=== PATIENT | female | born 1940 | race Caucasian/White ===

== ENCOUNTER → 2016-12-03 | Outpatient (CLI) | payer OTHER, BC ==
[~2016-12-03] MED LIST: DRGTP12 TOP; FSMD/70 PO; LEVO100T PO; LEVO88TA PO; LORA-741 PO; OXYC-57 PO; PRAV20TA PO
--- NOTE | 2016-12-03 12:30 | DIAGNOSTIC IMAGING REPORT ---
PET/CT CLINICAL HISTORY: Pulmonary nodule. COMPARISON STUDY: Chest CT dated 11/25/2016. TECHNIQUE: One hour following the IV administration of 13.9 mCi of F-18 FDG, PET/CT examination was performed from the orbital meatal line through the bony pelvis. Noncontrast CT is performed for the purposes of anatomic correlation and attenuation correction. Note that this does not reflect a diagnostic CT examination. Images were reviewed on a separate [employer] independent workstation. Fused images were obtained. Standard uptake values reported are maximum values within the region of interest expressed in gm/mL. FINDINGS: PET FINDINGS: Head and neck: There is expected physiologic activity within the visualized brain parenchyma at the skull base and the salivary glands. Thorax: Evaluation of the thorax demonstrates expected physiologic myocardial activity. There is a spiculated mass in the anterior left upper lobe seen on image #53. This measures 3.4 x 2.9 cm and is FDG avid with a maximum SUV of 10.8. No additional pulmonary lesion is seen. There are FDG avid mediastinal and left hilar lymph nodes. A subcarinal node on image #63 measures 1.6 x 1.1 cm and demonstrates a maximum SUV of 5.7. A left hilar node on image #61 measures 1.7 x 1.3 cm demonstrates a maximum SUV of 6.4. There are at least 2 additional FDG avid left hilar lymph nodes seen on images #58 and #67.No right hilar adenopathy is seen. Abdomen and pelvis: There is expected activity within the liver, spleen, kidneys, renal collecting system, and bladder. Low-level bowel activity is likely within physical limits. No FDG avid lesions are identified in the abdomen or pelvis. 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 A lytic lesion in the body of the sternum on image #76 measures 2.5 x 3.5 cm and demonstrates a maximum SUV of 8.2. A lesion in the left ilium on image #156 measures 1.6 cm and demonstrates a maximum SUV of 9.2. Additional lesions are seen within the body of L1 on image #107, the sacrum on image #157, and the right ischium on image #195. Unenhanced CT images: Partially imaged brain parenchyma the skull base is normal in appearance. Orbital contents are normal as visualized. Mucosal thickening is seen in the right maxillary antrum. The remaining visualized paranasal sinuses are clear. The mastoid air cells are well pneumatized. The salivary glands are normal in appearance. The thyroid gland is atrophic versus surgically absent. No cervical lymphadenopathy is seen. There is atherosclerotic calcification of the thoracic aorta which is normal in caliber. No airspace consolidation is seen typical for pneumonia. A trace right pleural effusion is identified. See above under PET findings for discussion of the left upper lobe pulmonary lesion. No axillary lymphadenopathy is seen. The heart is normal in size and there is trace pericardial effusion. There is a tiny hiatal hernia. There is evidence of hepatic steatosis. A 1.8 cm cyst is noted in the left hepatic lobe. The unenhanced spleen, adrenal glands, and kidneys are grossly unremarkable. The pancreas appears atrophic. Calcified gallstones are identified. The abdominal aorta is normal in caliber noting mild atherosclerotic calcification. There is no bowel obstruction. Moderate colonic fecal retention is observed. There is moderate colonic diverticulosis without CT evidence of acute diverticulitis. A normal appendix is identified. No intraperitoneal free air or abdominal ascites is seen. There is no abdominal, pelvic, or inguinal lymphadenopathy. The bladder, uterus, and adnexa are normal as visualized. The skeletal structures are osteopenic. Mild degenerative change is seen throughout the spine. IMPRESSION: 1. There is a 3.4 cm FDG avid spiculated mass in the left upper lobe. This should be considered lung cancer until otherwise. 2. FDG avid left hilar and mediastinal lymph nodes are consistent with kana disease. 3. There is evidence of osteolytic metastatic disease as above. 4. There is a trace right pleural effusion. 5. Cholelithiasis. 6. Moderate constipation. 7. There is moderate colonic diverticulosis without CT evidence of acute diverticulitis. 8. Additional findings as above. Electronically signed by: Karan Ring M.D. 12/03/2016 12:29 PM Dictated Date/Time: 12/03/2016 12:14 PM
== END | disposition home or self-care (01) ==
LOC: C.PET 08:23
PROVIDERS: ATTEND Physician Assistant
DX: R07.9 Chest pain, unspecified (principal); Z87.891 Personal history of nicotine dependence; R91.8 Other nonspecific abnormal finding of lung field; S31.001A Unspecified open wound of lower back and pelvis with penetration into retroperitoneum, initial encounter; R91.1 Solitary pulmonary nodule

== ENCOUNTER 2016-12-26 11:46 | Day surgery (SDC) | payer OTHER, BC ==
[2016-12-25 17:38] VITALS: BMI 27.0
[~2016-12-26] VITALS: Ht 160 cm; Wt 71.0 kg
[~2016-12-26 11:46] MED LIST changes: -FSMD/70 PO
[2016-12-26] MEDS ORDERED: POLY335019 PO (12:33)
[2016-12-26 12:34] VITALS: BP 136/57; PULSE 65; TEMP 37; O2SAT 97; Ht 160 cm; Wt 71.0 kg
[2016-12-26] MEDS ORDERED: NURSING VERBAL MED ORDER ONE (14:00)
[2016-12-26] MEDS ORDERED: LACTATED RINGER'S 1000ML 1,000 ML IV SCH (14:00)
--- NOTE | 2016-12-26 15:31 | Discharge Instructions ---
Discharge Instructions Date of Service Dec 26, 2016. Visit Reason for Visit: Lung Cancer With Mets Discharge Discharge Diagnosis / Problem: Lung Cancer With Mets Discharge Goals Goal(s): Learn about illness Activity Recommendations Activity Limitations: resume your previous activity (in 24 hours) Anesthesia . Post Anesthesia Instructions: If you have had General Anesthesia or IV Sedation: * Do not drive today. * Resume driving when surgeon permits. * Do not make important decisions or sign legal documents today. * Call surgeon for: 1. Temperature elevations greater than 101 degrees F. 2. Uncontrollable pain. 3. Excessive bleeding. 4. Persistent nausea and vomiting. 5. Medication intolerance (nausea, vomiting or rash). * For nausea and vomiting use only clear liquids such as: tea, soda, bouillon until nausea subsides, then gradually increase diet as tolerated. * If you have any concerns or questions, call your surgeon's office. If physician is unavailable and it is an emergency, call 911 or go to the nearest emergency room. . Instructions / Follow-Up Instructions / Follow-Up 1. Keep your scheduled appointment with Dr. Dash on January 05 @ 9:45. 2. you may remove dressing in 3 days and shower thereafter. No tub baths. Diet Recommendations Recommended Home Diet: resume previous diet Pending Studies Studies pending at discharge: no Medical Emergencies . Who to Call and When: Medical Emergencies: If at any time you feel your situation is an emergency, please call 911 immediately. . Non-Emergent Contact Non-Emergency issues call your: Surgeon Call Non-Emergent contact if: you have a fever, your pain is not controlled, wound has increased drainage . . "Provider Documentation" section prepared by Rob Carrion. .
[2016-12-26] MEDS ORDERED: TRAM-10 PO (16:21)
[2016-12-26] MEDS ORDERED: GENTAMICIN SULFATE 40 MG/ML 2 ML VIAL ONE (16:27)
[2016-12-26] MEDS ORDERED: BUPIVACAINE LIPOSOME 1/3% 266 MG/20 ML VIAL INFIL ONE (16:28)
[2016-12-26] MEDS ORDERED: VANCOMYCIN HCL 1000MG/20ML VIAL ONE (16:28)
[2016-12-26] MEDS ORDERED: LIDOCAINE HCL 2% 2 ML VIAL (20MG/ML) ONE (16:29)
[2016-12-26] MEDS ORDERED: FENTANYL CITRATE INJ 50 MCG/1 ML 2 ML VIAL ONE ×3 (16:29→18:17)
[2016-12-26] MEDS ORDERED: PROPOFOL IV EMULSION 10 MG/ML 20 ML VIAL IV ONE (16:29)
[2016-12-26] MEDS ORDERED: MIDAZOLAM HCL 1 MG/ML 2ML VIAL ONE (16:29)
--- NOTE | 2016-12-26 16:44 | History & Physical Bridge Note ---
H&P Re-Evaluation Bridge Note: I have examined the patient, reviewed the History & Physical and in the interval since the performance of the History & Physical I have noted the following changes of clinical significance: No changes noted
[2016-12-26] MEDS ORDERED: CEFAZOLIN SOD 1 GM VIAL ONE (17:05)
[2016-12-26] MEDS ORDERED: ONDANSETRON INJ 2 MG/ML 2 ML VIAL ONE (17:05)
[2016-12-26] MEDS ORDERED: SODIUM CHLORIDE 0.9% PF 50 ML VIAL ONE (17:09)
[2016-12-26] MEDS ORDERED: MoRPHine SULFATE 2 MG/ML CARP IV PRN (18:00)
[2016-12-26] MEDS ORDERED: TRAMADOL HCL 50 MG TAB PO PRN (18:00)
[2016-12-26] MEDS ORDERED: ONDANSETRON INJ 2 MG/ML 2 ML VIAL IV. SCH (18:00)
[2016-12-26] MEDS ORDERED: ATROPINE SULFATE 0.1 MG/ML 5ML SYR IV PRN (18:15)
[2016-12-26] MEDS ORDERED: EpHEDrine SULFATE INJ 50 MG/ML AMP IV PRN (18:15)
[2016-12-26] MEDS ORDERED: ONDANSETRON INJ 2 MG/ML 2 ML VIAL IV PRN (18:15)
[2016-12-26] MEDS ORDERED: FENTANYL CITRATE INJ 50 MCG/1 ML 2 ML VIAL IV PRN (18:15)
[2016-12-26] MEDS ORDERED: PROMETHAZINE HCL INJ 6.25 MG in SODIUM CHLORIDE 0.9% 50ML 50 ML IV PRN (18:15)
[2016-12-26 18:45] VITALS: BP 144/69; PULSE 73; TEMP 37.1; O2SAT 94
--- NOTE | 2016-12-26 18:48 | Anesthesiology Progress Note ---
Anesthesia Post Op Note Date & Time Dec 26, 2016 at 18:48 Vital Signs Pain Intensity: 2 Vital Signs Past 12 Hours Date Time Temp Pulse Resp B/P (MAP) Pulse Ox O2 Delivery O2 Flow Rate FiO2 12/26/16 18:35 36.5 76 16 147/68 95 Room Air 12/26/16 18:15 62 16 161/79 100 Oxymask 7 12/26/16 18:05 68 16 158/70 100 Oxymask 7 12/26/16 17:56 36.9 72 16 161/71 100 Oxymask 7 12/26/16 12:34 37.0 65 18 136/57 (83) 97 Room Air Notes Mental Status: alert / awake / arousable, participated in evaluation Pt Amnestic to Procedure: Yes Nausea / Vomiting: adequately controlled Pain: adequately controlled Airway Patency, RR, SpO2: stable & adequate BP & HR: stable & adequate Hydration State: stable & adequate Anesthetic Complications: no major complications apparent
[2016-12-26 19:15] VITALS: BP 148/67; PULSE 68; TEMP 37.2; O2SAT 96
[2016-12-26 19:43] VITALS: BP 138/65; PULSE 68; TEMP 36.5; O2SAT 95
--- NOTE | 2016-12-28 10:07 | OPERATIVE REPORT ---
DATE OF OPERATION: 12/26/2016 PREOPERATIVE DIAGNOSIS: Metastatic nonsmall cell lung carcinoma. POSTOPERATIVE DIAGNOSIS: Same. PROCEDURE: Bone biopsy of lower sternum. SURGEON: Dr. Dash. VALVE LINER RUBBER: Rob Carrion PA-C. ANESTHESIA: 1. General anesthesia with laryngeal mask airway. 2. Regional block using Exparel. SPECIFICS OF PROCEDURE: The patient was brought to the operating room on the afternoon of 12/26/2016. Laryngeal mask airway was placed and anesthesia induced. I had carefully measured this mass. It is extremely important and we get tissue in order to make a diagnosis for targeted therapy and we did not have enough from the fine needle aspiration to do such. I discussed this case in detail. I ended up making an incision below the lesion about 4 cm. I made my incision right over the xiphoid process then tunneled upward and did a generous biopsy. Frozen section showed we had enough tissue. I then packed this with purified calcium sulfate beads as a space filler. She tolerated it well. PROCEDURE: The patient brought to the operating room and laid in supine position. General anesthesia induced and laryngeal mask airway was placed. The abdomen was prepped and draped in the usual sterile fashion. After proper timeout had been called and antibiotics have been given an incision was made about 4 cm in length, but this was right over the xiphoid process and down onto the linea alba. I did not open the linea alba. I then retracted upward and then dissected out until I came to the lower sternum. Using a rongeur I removed a large amount of bone here. We got into bleeding controlled with electrocautery and then we placed a Surgicel. Pressure was then held and this tissue was sent off for frozen section. Dr. Jose Guadalupe Jasso called and stated we had enough tissue to perform the appropriate studies. Five mL of purified calcium sulfate were mixed with 500 mg of vancomycin powder and 160 mg in 4 mL of gentamicin liquid. When this had formed a putty like consistency was placed on a mold. When this had dried the mold was bent and the beads removed. They were then used to fill the bony defect in the soft tissue defect that we had made. We then closed the deeper subcutaneous tissues with a running 0 Vicryl. A 2-0 vertical mattress nylon sutures were then placed to close the skin incision. She tolerated it well. I attest to the content of the Intraoperative Record and any orders documented therein. Any exception s are noted below.
--- NOTE | 2016-12-28 10:08 | OPERATIVE REPORT ---
DATE OF OPERATION: 12/26/2016 ADDENDUM: Fran Carrion is a physician virtual assistant who assisted me throughout this case. He was present for the entire case and performed invaluable assistance in exposure, handling of instruments and closing at the conclusion of the case. I attest to the content of the Intraoperative Record and any orders documented therein. Any exception s are noted below.
[2016-12-28] MEDS ORDERED: ASCO500T16 PO (16:15)
== END 2016-12-26 19:50 | disposition home or self-care (01) ==
LOC: C.ACU 11:46
PROVIDERS: ATTEND Surgery
DX: C34.92 Malignant neoplasm of unspecified part of left bronchus or lung (principal); C79.51 Secondary malignant neoplasm of bone; E78.2 Mixed hyperlipidemia; E03.9 Hypothyroidism, unspecified; G47.00 Insomnia, unspecified; R59.1 Generalized enlarged lymph nodes; R54 Age-related physical debility; R91.1 Solitary pulmonary nodule; M93.90 Osteochondropathy, unspecified of unspecified site; Z87.891 Personal history of nicotine dependence; Z79.899 Other long term (current) drug therapy

== ENCOUNTER 2017-01-22 09:09 | Inpatient (IN) | payer OTHER, BC ==
[2017-01-20 10:11] VITALS: BMI 27.0
[~2017-01-22] VITALS: Ht 160 cm; Wt 70.5 kg
[~2017-01-22 09:09] MED LIST changes: +ASCO500T16 PO; +CEFAZOLIN 2000MG IV PUSH 10 ML IV SCH; +FSMD/70 PO; +LACTATED RINGER'S 1000ML 1,000 ML IV SCH; +ONDA8TAB6 PO; +POLY335019 PO; +PROC1TAB5 PO; +TRAM-10 PO; +[UNRECOGNIZED DRUG - CODE] PO
[2017-01-22 09:40] VITALS: BP 140/69; PULSE 78; TEMP 36.9; O2SAT 99; Ht 160 cm; Wt 70.5 kg
[2017-01-22] MEDS ORDERED: IBUP-1050 PO (09:59)
[2017-01-22] MEDS ORDERED: FENTANYL CITRATE INJ 50 MCG/1 ML 2 ML VIAL IV PRN (10:00)
[2017-01-22] MEDS ORDERED: ATROPINE SULFATE 0.1 MG/ML 5ML SYR IV PRN (10:00)
[2017-01-22] MEDS ORDERED: EpHEDrine SULFATE INJ 50 MG/ML AMP IV PRN (10:00)
[2017-01-22] MEDS ORDERED: ONDANSETRON INJ 2 MG/ML 2 ML VIAL IV PRN ×2 (10:00→13:15)
[2017-01-22 10:29] LABS: HEMATOCRIT 30.3 % (37-47); MEAN CELL VOLUME 90.2 fL (80-100); MEAN CORPUSCULAR HEMOGLOBIN 30.7 pg (25-34); MEAN PLATELET VOLUME 10.8 fL (7.4-10.4); PLATELET COUNT 99 K/uL (130-400); RED BLOOD COUNT 3.36 M/uL (4.2-5.4); WHITE BLOOD COUNT 0.75 K/uL (4.8-10.8)
[2017-01-22 10:32] LABS: BASO % 1.3 %; BASO ABS # 0.01 K/uL (0-0.2); COMPLETE YES; GIANT PLATELETS 2+; LYMPH % 17.3 %; LYMPH ABS # 0.13 K/uL (1.2-3.4); MONO % 22.7 %; NEUT % 38.7 %; PLT ESTIMATE DECREASED
[2017-01-22] MEDS ORDERED: MIDAZOLAM HCL 1 MG/ML 2ML VIAL ONE (10:41)
[2017-01-22] MEDS ORDERED: FENTANYL CITRATE INJ 50 MCG/1 ML 2 ML VIAL ONE (10:41)
[2017-01-22] MEDS ORDERED: PROPOFOL IV EMULSION 10 MG/ML 20 ML VIAL IV ONE ×3 (10:45→12:14)
--- NOTE | 2017-01-22 11:09 | History & Physical Bridge Note ---
H&P Re-Evaluation Bridge Note: I have examined the patient, reviewed the History & Physical and in the interval since the performance of the History & Physical I have noted the following changes of clinical significance: Patient seen by Dr. Dash, improving erythema status post radiation to sternum, no evidence of infection, will proceed with A-port placement. No changes noted
[2017-01-22] MEDS ORDERED: BUPIVACAINE 0.5 % 5 MG/1 ML MPF 30ML VIAL ONE (11:40)
[2017-01-22] MEDS ORDERED: HEPARIN SOD (PORCINE) 1000 UNIT/ML 10 ML VIAL ONE (11:40)
[2017-01-22] MEDS ORDERED: CEFAZOLIN SOD 1 GM VIAL ONE (12:21)
[2017-01-22] MEDS ORDERED: LIDOCAINE HCL 2% 2 ML VIAL (20MG/ML) ONE (12:28)
--- NOTE | 2017-01-22 12:51 | [facility] Post Operative Brief Note ---
Immediate Operative Summary Operative Date Jan 22, 2017. Pre-Operative Diagnosis needed for chemotherapy Post-Operative Diagnosis needed for chemotherapy Procedure(s) Performed Insertion of Mediport with Fluoroscopy; Left Subclavian Vein Surgeon Dr. Martell Newell Movable Bulkhead Installer Surgeon(s) Danna Tinoco PA-C Estimated Blood Loss 4ML Findings Left subclavian vein power port placed, cut to 23cm, draws and flushes easily, good location on fluoro, chest xray pending. Specimens none per surgeon Dr. Martell Newell Drains None Anesthesia MAC Complication(s) None Disposition Recovery Room / PACU
--- NOTE | 2017-01-22 12:58 | [facility] Operative Report ---
Operative Report Operative Date Jan 22, 2017. Pre-Operative Diagnosis needed for chemotherapy Post-Operative Diagnosis metastatic lunc cancer, need for chemotherapy Procedure(s) Performed left subclavian power port placement Surgeon Dr. Martell Newell Podiatry Teacher Surgeon(s) Danna Tinoco PA-C Estimated Blood Loss 4ML Findings Left subclavian vein power port placed, cut to 23cm, draws and flushes easily, good location on fluoro, chest xray pending. Specimens none per surgeon Dr. Martell Newell Drains None Anesthesia MAC Complication(s) None Disposition Recovery Room / PACU Indications 76-year-old female with metastatic lung cancer, plan for port placement. The risks of the procedure were discussed, all questions were answered, and the patient agreed to proceed with surgery as planned. Description of Procedure The patient was properly identified, consented, and taken to the operating room where she was placed in the supine position with both arms tucked and a shoulder roll placed vertically. Monitored anesthesia care was induced. SCDs and a safety belt were placed. Preoperative antibiotics were administered. The patient's chest and neck was prepped and draped in the standard sterile fashion. Surgical timeout was performed and all parties were in agreement that this was the correct patient and procedure to be performed and we continued as planned. The patient was placed in Trendelenburg position. Local anesthetic was injected along the skin incision. The left subclavian vein was accessed on the first attempt using the access needle. The wire was placed and the needle was removed. Fluoroscopy confirmed placement into the subclavian vein extending into the superior vena cava. A transverse skin incision was made and a pocket was created for the port. The dilator and peel-away sheath were inserted over the wire. The catheter was then inserted through the peel-away sheath and fluoroscopy confirmed placement into the superior vena cava. The catheter was cut to 23 cm and attached to the port. The port was secured into place with 3- 0 Prolene sutures. A final x-ray revealed good placement of the port. The wound was irrigated and hemostasis was confirmed. The skin was closed with interrupted 3-0 Vicryl deep dermal sutures, followed by 4-0 Monocryl running subcuticular suture. Dermabond was placed over the wound. The port was accessed and gogo blood easily and flushed easily. It was flushed with heparinized saline. The physician's fundraising assistant was essential retraction, exposure, positioning the port, and closure. The patient taken to the PACU where she recovered without apparent incident. All sponge, instrument and needle counts were correct at the conclusion of the procedure. The patient tolerated the procedure well. A chest x-ray was pending at the time of the dictation. I attest to the content of the Intraoperative Record and any orders documented therein. Any exceptions are noted below.
[2017-01-22] MEDS ORDERED: SODIUM CHLORIDE 0.9% 1000ML 1,000 ML IV SCH (13:02)
--- NOTE | 2017-01-22 13:07 | Discharge Instructions ---
Discharge Instructions Date of Service Jan 22, 2017. Admission Reason for Admission: Lung Cancer, Metastatic Bone Cancer Discharge Discharge Diagnosis / Problem: Lung Cancer, Metastatic Bone Cancer Discharge Goals Goal(s): Decrease discomfort, Improve function Activity Recommendations Activity Limitations: as noted below Lifting Limitations: no more than 10 pounds Exercise/Sports Limitations: until after follow-up appointment May Resume Sexual Activity: after follow-up appointment Shower/Bathe: tomorrow Driving or Machine Use: resume 1 day after discharge . Instructions / Follow-Up Instructions / Follow-Up Please follow-up with Dr. Newell in the office in 1-2 weeks. Please call the office at [phone] to make a follow-up appointment if you do not have one already. Please call the office with any questions or concerns. Current Hospital Diet Patient's current hospital diet: Discharge Diet Recommended Diet: Regular Diet Procedures Procedures Performed: Insertion of Mediport with Fluoroscopy; Left Subclavian Vein Pending Studies Studies pending at discharge: no Medical Emergencies . Who to Call and When: Medical Emergencies: If at any time you feel your situation is an emergency, please call 911 immediately. . Non-Emergent Contact Non-Emergency issues call your: Primary Care Provider, Surgeon Call Non-Emergent contact if: temperature is above 101.5, your pain is not controlled, wound has increased drainage, wound has increased redness . "Provider Documentation" section prepared by Danna Tinoco. . VTE Core Measure Inpt VTE Proph given/why not?: SCD's [place] Drug Monitoring Program Search Results: patient reviewed within database, no issues identified
[2017-01-22] MEDS ORDERED: OXYCODONE/ACETAMINOPHEN 5-325 TAB PO PRN ×3 (13:15→15:30)
--- NOTE | 2017-01-22 13:24 | DIAGNOSTIC IMAGING REPORT ---
SINGLE VIEW CHEST CLINICAL HISTORY: Infusion port placement. FINDINGS: An AP, portable, upright chest radiograph is compared to chest x-ray and chest CT dated 11/25/2016. The examination is degraded by portable technique and patient rotation. A left subclavian central venous infusion port has been placed. The tip projects over the cavoatrial junction. The heart is mildly enlarged and there is atherosclerotic calcification of the thoracic aorta. The pulmonary vasculature is noncongested. No airspace consolidation or large pleural effusion is seen. A small left apical pneumothorax is identified. The bony thorax is grossly intact. IMPRESSION: 1. A left subclavian central venous infusion port has been placed as detailed above. 2. A small left apical pneumothorax is identified post procedure. 3. No airspace consolidation or pleural effusion is identified. Electronically signed by: Karan Ring M.D. 01/22/2017 1:23 PM Dictated Date/Time: 01/22/2017 1:18 PM
--- NOTE | 2017-01-22 15:17 | DIAGNOSTIC IMAGING REPORT ---
CHEST ONE VIEW PORTABLE HISTORY: 76 years-old Female Post-op follow up status post placement of a left subclavian Qzyjgb-j-Vyup catheter with pneumothorax. COMPARISON: Chest radiograph of same day at 1:05 PM TECHNIQUE: Portable upright AP view of the chest FINDINGS: Cardiac silhouette is within normal limits. Left subclavian Zfhzag-o-Xngz catheter is again seen with distal tip terminating in the region of the mid SVC. Left-sided pneumothorax is noted with pleural separation of 1.5 cm, previously 9 mm. No midline shift. Atherosclerosis of the aorta. Nodular opacity superior to the left hilum redemonstrated. Atherosclerosis of the aorta. Right lung is clear. Bones appear grossly intact. Subsegmental atelectasis or scarring of the left lung base. IMPRESSION: Status post placement of left subclavian Vyxsos-o-Uolv catheter with mildly increased size of small left pneumothorax. The above report was generated using voice recognition software. It may contain grammatical, syntax or spelling errors. Electronically signed by: Guillermo Godfrey M.D. 01/22/2017 3:16 PM Dictated Date/Time: 01/22/2017 3:14 PM
--- NOTE | 2017-01-22 15:17 | Anesthesiology Progress Note ---
Anesthesia Post Op Note Date & Time Jan 22, 2017 at 15:16 Vital Signs Pain Intensity: 0 Vital Signs Past 12 Hours Date Time Temp Pulse Resp B/P (MAP) Pulse Ox O2 Delivery O2 Flow Rate FiO2 01/22/17 14:50 78 18 126/72 100 Oxymask 10 01/22/17 14:35 70 18 127/68 100 Oxymask 10 01/22/17 14:20 36.9 67 16 130/70 100 Oxymask 10 01/22/17 14:10 36.9 69 16 145/95 100 Oxymask 10 01/22/17 13:55 36.9 71 16 133/69 97 Oxymask 10 01/22/17 13:40 36.9 74 16 127/77 97 Room Air 01/22/17 13:30 36.9 71 16 134/73 97 Room Air 01/22/17 13:20 36.9 70 16 133/66 98 Room Air 01/22/17 13:10 70 16 134/77 100 Oxymask 01/22/17 13:01 36.5 73 16 134/74 100 Oxymask 10 01/22/17 09:40 36.9 78 18 140/69 (92) 99 Room Air Notes Mental Status: alert / awake / arousable, participated in evaluation Pt Amnestic to Procedure: Yes Nausea / Vomiting: adequately controlled Pain: adequately controlled Airway Patency, RR, SpO2: stable & adequate BP & HR: stable & adequate Hydration State: stable & adequate Anesthetic Complications: no major complications apparent Doing well. No complaints. VSS.
[2017-01-22 16:00] VITALS: BP 142/72; PULSE 83; TEMP 37.2; O2SAT 100
[2017-01-22] MEDS ORDERED: NURSING VERBAL MED ORDER ONE ×2 (17:30→19:15)
[2017-01-22] MEDS ORDERED: FENTANYL PATCH REMOVE & WASTE SCH (17:59)
[2017-01-22] MEDS ORDERED: FENTANYL 12 MCG/HR TDSY TD SCH (18:00)
[2017-01-22 18:28] VITALS: BP 128/78; PULSE 92; TEMP 37.5
[2017-01-22 18:44] VITALS: O2SAT 100
[2017-01-22] MEDS: OXYCODONE/ACETAMINOPHEN 5-325 TAB PO SCH ×2 (20:10→23:00)
[2017-01-22] MEDS: ONDANSETRON 8 MG TAB PO PRN ×2 (21:14→21:55)
[2017-01-22 23:15] VITALS: BP 133/83; PULSE 87; TEMP 37.2; O2SAT 100
[2017-01-22] MEDS: LORAZEPAM 0.5 MG TAB PO PRN (23:15)
[2017-01-23] MEDS: CHECK FENTANYL PATCH PLACEMENT SCH ×4 (00:08→23:57)
[2017-01-23 03:35] VITALS: BP 138/83; PULSE 99; TEMP 38.4; O2SAT 100
[2017-01-23] MEDS ORDERED: PROMETHAZINE HCL INJ 25 MG in SODIUM CHLORIDE 0.9% 50ML 50 ML IV STA (03:59)
[2017-01-23] MEDS ORDERED: NURSING VERBAL MED ORDER ONE ×2 (04:00→12:00)
[2017-01-23] MEDS ORDERED: ACETAMINOPHEN IV 1000MG/100ML IV PRN (04:15)
[2017-01-23] MEDS: OXYCODONE/ACETAMINOPHEN 5-325 TAB PO SCH ×3 (06:00→18:42)
[2017-01-23] MEDS: LEVOTHYROXINE 100 MCG TAB PO SCH (06:25)
[2017-01-23 07:13] LABS: HEMATOCRIT 28.7 % (37-47); MEAN CELL VOLUME 90.5 fL (80-100); MEAN CORPUSCULAR HEMOGLOBIN 30.9 pg (25-34); MEAN CORPUSCULAR HGB CONC 34.1 g/dl (32-36); MEAN PLATELET VOLUME 9.9 fL (7.4-10.4); PLATELET COUNT 80 K/uL (130-400); RED BLOOD COUNT 3.17 M/uL (4.2-5.4); WHITE BLOOD COUNT 0.46 K/uL (4.8-10.8)
[2017-01-23 07:21] LABS: BUN/CREATININE RATIO 19.5 (10-20); CALCIUM 8.9 mg/dl (8.5-10.1); CREATININE 0.74 mg/dl (0.60-1.20); POTASSIUM 3.3 mmol/L (3.5-5.1)
[2017-01-23 07:23] VITALS: BP 118/74; PULSE 86; TEMP 37.4; O2SAT 99
[2017-01-23 07:30] VITALS: O2SAT 99
--- NOTE | 2017-01-23 08:27 | DIAGNOSTIC IMAGING REPORT ---
CHEST 2 VIEWS ROUTINE CLINICAL HISTORY: s/p port placement; pneumothorax tube position COMPARISON STUDY: 01/22/2017 FINDINGS: Moderate increase in volume of a left-sided pneumothorax. Maximum pleural separation currently is 3 cm increased from 1.4 cm. A central catheter remains in superior vena cava. Mild bibasilar interstitial prominence. Upper right lung is clear. IMPRESSION: Mild increase in volume of right apical pneumothorax now with a maximum pleural separation of 3 cm. The above report was generated using voice recognition software. It may contain grammatical, syntax or spelling errors. Electronically signed by: Sen Schuster M.D. 01/23/2017 8:25 AM Dictated Date/Time: 01/23/2017 8:24 AM
--- NOTE | 2017-01-23 09:15 | Surgery Progress Note ---
Surgery Progress Note Date of Service Jan 23, 2017. Subjective Post OP Day: 1 + pain controlled, No nausea, No vomiting Laying in bed during examination- easy to arouse, but appears drowsy during conversation. Patient denies shortness of breath, denies nausea or vomiting this AM. Objective Vital Signs: Date Time Temp Pulse Resp B/P (MAP) Pulse Ox O2 Delivery O2 Flow Rate FiO2 01/23/17 07:23 37.4 86 17 118/74 (89) 99 Oxymask 10.0 01/23/17 03:35 38.4 99 16 138/83 (101) 100 Oxymask 10.0 01/22/17 23:15 37.2 87 16 133/83 (100) 100 Oxymask 10.0 01/22/17 23:15 Oxymask 10.0 01/22/17 18:44 100 Oxymask 10.0 01/22/17 16:00 100 Oxymask 10.0 01/22/17 16:00 37.2 83 16 142/72 (95) 100 Oxymask 10.0 01/22/17 16:00 100 Oxymask 10.0 01/22/17 15:35 37.1 76 20 132/85 100 Oxymask 10 01/22/17 15:20 37.1 73 20 132/75 100 Oxymask 10 01/22/17 15:05 37.1 78 18 134/71 100 Oxymask 10 01/22/17 14:50 78 18 126/72 100 Oxymask 10 01/22/17 14:35 70 18 127/68 100 Oxymask 10 01/22/17 14:20 36.9 67 16 130/70 100 Oxymask 10 01/22/17 14:10 36.9 69 16 145/95 100 Oxymask 10 01/22/17 13:55 36.9 71 16 133/69 97 Oxymask 10 01/22/17 13:40 36.9 74 16 127/77 97 Room Air 01/22/17 13:30 36.9 71 16 134/73 97 Room Air 01/22/17 13:20 36.9 70 16 133/66 98 Room Air 01/22/17 13:10 70 16 134/77 100 Oxymask 10 01/22/17 13:01 36.5 73 16 134/74 100 Oxymask 10 01/22/17 09:40 36.9 78 18 140/69 (92) 99 Room Air General Appearance: WD/WN, no apparent distress Respiratory/Chest: no respiratory distress, no accessory muscle use Incision(s): clean, dry, intact, findings (Dermabond. ) Laboratory Results: Results Past 24 Hours Test 01/22/17 09:45 01/23/17 06:22 Range/Units White Blood Count 0.75 0.46 4.8-10.8 K/uL Red Blood Count 3.36 3.17 4.2-5.4 M/uL Hemoglobin 10.3 9.8 12.0-16.0 g/dL Hematocrit 30.3 28.7 37-47 % Mean Corpuscular Volume 90.2 90.5 80-100 fL Mean Corpuscular Hemoglobin 30.7 30.9 25-34 pg Mean Corpuscular Hemoglobin Concent 34.0 34.1 32-36 g/dl Platelet Count 99 80 130-400 K/uL Mean Platelet Volume 10.8 9.9 7.4-10.4 fL Neutrophils (%) (Auto) 38.7 % Lymphocytes (%) (Auto) 17.3 % Monocytes (%) (Auto) 22.7 % Eosinophils (%) (Auto) 20.0 % Basophils (%) (Auto) 1.3 % Neutrophils # (Auto) 0.29 1.4-6.5 K/uL Lymphocytes # (Auto) 0.13 1.2-3.4 K/uL Monocytes # (Auto) 0.17 0.11-0.59 K/uL Eosinophils # (Auto) 0.15 0-0.5 K/uL Basophils # (Auto) 0.01 0-0.2 K/uL RDW Standard Deviation 44.5 45.1 36.4-46.3 fL RDW Coefficient of Variation 13.5 13.6 11.5-14.5 % Immature Granulocyte % (Auto) 0.0 % Immature Granulocyte # (Auto) 0.00 0.00-0.02 K/uL Platelet Estimate DECREASED Giant Platelets 2+ Sodium Level 132 136-145 mmol/L Potassium Level 3.3 3.5-5.1 mmol/L Chloride Level 99 98-107 mmol/L Carbon Dioxide Level 28 21-32 mmol/L Anion Gap 5.0 3-11 mmol/L Blood Urea Nitrogen 14 7-18 mg/dl Creatinine 0.74 0.60-1.20 mg/dl Est Creatinine Clear Calc Drug Dose 61.8 ml/min Estimated GFR () 91.9 Estimated GFR (Non- 79.3 BUN/Creatinine Ratio 19.5 10-20 Random Glucose 104 70-99 mg/dl Calcium Level 8.9 8.5-10.1 mg/dl Assessment & Plan 76yo female POD #1 s/p port placement, post-op pneumothorax. Temperature 38.4 early this AM- IV Tylenol added. AM labs reviewed- critical WBC- patient had recent chemotherapy treatment- Heme/Onc consult placed. Spoke with Dr. Mcnamara who will be seeing patient today. Repeat CXR reviewed and discussed with Dr. Newell- will place Thoracic surgery consult. Discussed case with Dr. Dash- He will be seeing her later today.
[2017-01-23] MEDS: PRAVASTATIN SOD 20 MG TAB PO SCH (09:54)
[2017-01-23] MEDS: ONDANSETRON 8 MG TAB PO PRN ×2 (09:54→18:42)
--- NOTE | 2017-01-23 11:20 | Oncology Consultation ---
Oncology/Heme Consultation Date of Consultation: Jan 23, 2017. Attending Physician: Martell Newell DO Reason for Consultation: Metastatic adenocarcinoma Cytopenias due to recent chemotherapy History of Present Illness Ms. Granados is a 76-year-old female recently diagnosed to having adenocarcinoma primary lung disease with metastatic disease to bone. This tumor is biomarker negative. She was treated with Taxol and carboplatinum on one occasion on January. Yesterday a subcutaneous port was placed. She has developed a pneumothorax that has worsened. Along the way she was found to be neutropenic and is now being hospitalized for observation. She denies worsening shortness of breath she. She denies any overt fever although she states that she was told that she had a very low-grade fever yesterday. She denies any abdominal pain or bone pain. She denies any diarrhea or dysuria. Past Medical/Surgical History metastatic non-small cell carcinoma Cytopenias secondary to therapy Pneumothorax Social History Smoking Status: Former Smoker Allergies Coded Allergies: Adhesives (Verified Allergy, Unknown, SORE SKIN, 01/22/17) Azithromycin (Verified Allergy, Unknown, WEAKNESS, 01/22/17) Protriptyline (Verified Allergy, Unknown, UNABLE TO RECALL REACTION, 01/22) Erythromycin (Verified Adverse Reaction, Unknown, WEAKNESS, 01/22/17) Home Medications Scheduled Alendronate/Cholecalciferol (Fosamax+D 70MG/2800 Iu), 1 TABLET PO WK Ascorbic Acid (Ascorbic Acid), 500 MG PO QAM Fentanyl (Fentanyl), 1 PATCH TOP [id number] Levothyroxine Sodium (Synthroid), 100 MCG PO Q2D Levothyroxine Sodium (Synthroid), 88 MCG PO Q2D [place]-3 Fatty Acids (Fish Oil Triple Strength), 1 CAP PO QAM Pravastatin (Pravachol ), 20 MG PO QAM Scheduled PRN Lorazepam (Ativan), 0.5 MG PO HS PRN for Anxiety/Insomnia Ondansetron Hcl (Zofran), 8 MG PO Q8H PRN for Nausea Oxycodone/Acetaminophen 5MG/325MG (Percocet 5MG/325MG), 1 TABLET PO Q6H PRN for Pain Polyethylene Glycol 3350 (Miralax), 17 GM PO DAILY PRN for Constipation Prochlorperazine Maleate (Compazine), 10 MG PO Q6H PRN for Nausea Tramadol (Ultram), 50 MG PO Q4H PRN for Pain Miscellaneous Medications Ibuprofen (Advil), 200 MG PO Current Inpatient Medications Current Inpatient Medications Medications (Trade) Dose Ordered Sig/Adama Route Start Time Stop Time Status Last Admin Dose Admin Levothyroxine Sodium (Synthroid Tab) 88 mcg Q2D PO 01/24/17 07:00 02/23/17 06:59 Levothyroxine Sodium (Synthroid Tab) 100 mcg Q2D PO 01/23/17 07:00 02/22/17 06:59 01/23/17 06:25 100 MCG Lorazepam (Ativan Tab) 0.5 mg HS PRN PO 01/22/17 15:30 02/21/17 15:29 01/22/17 23:15 0.5 MG Pravastatin Sodium (Pravachol Tab) 20 mg QAM PO 01/23/17 09:00 02/22/17 08:59 01/23/17 09:54 20 MG Tramadol HCl (Ultram Tab) 50 mg Q4H PRN PO 01/22/17 15:30 02/21/17 15:29 Fentanyl (Duragesic Patch) 12 mcg Q3D@1800 TD 01/22/17 18:00 02/05/17 17:59 01/22/17 20:10 12 MCG Miscellaneous (Fentanyl Patch Remove & Waste) 1 ea Q3D@1759 N/A 01/22/17 17:59 02/21/17 17:58 Miscellaneous Information (Check Fentanyl Patch Placement) 1 ea QS N/A 01/23/17 00:00 02/22/17 00:00 01/23/17 08:00 1 EA Oxycodone/ Acetaminophen (Percocet 5-325mg Tab) 1 tab Q6 PO 01/22/17 18:15 01/23/17 18:14 Oxycodone/ Acetaminophen (Percocet 5-325mg Tab) 1 tab Q4H PRN PO 01/22/17 18:15 02/05/17 18:14 Acetaminophen 100 ml @ 400 mls/hr Q8H PRN IV 01/23/17 04:15 02/22/17 04:14 01/23/17 04:35 400 MLS/HR Ondansetron HCl (Zofran Tab) 8 mg Q6H PRN PO 01/23/17 04:15 02/22/17 04:14 01/23/17 09:54 8 MG Heparin Sodium (Porcine) (Heparin 100 Unit/ml 5ml Flush) 5 ml PRN PRN IV 01/23/17 09:00 02/22/17 08:59 Review of Systems Constitutional: Negative for weight loss, night sweats, Eyes: Negative for event change of vision ENT: Negative for epistaxis, nasal discharge, sore throat, or deafness Cardiovascular: Negative for chest pain, palpitations, dizziness, diaphoresis Respiratory: Negative for new shortness of breath,hemoptysis, or purulent cough Gastrointestinal: Negative for diarrhea, hematemesis, melena, nausea, vomiting , or dyspepsia Integumentary (skin): Negative for rash or jaundice discoloration Genitourinary: Negative for urinary frequency, hematuria, or dysuria Neurological: Negative for weakness, seizure activity, headache, or dizziness Lymphatic/Hematologic: Negative for petechiae, bleeding or new adenopathy Musculoskeletal: Negative for new joint or back pain Allergic/Immunologic: Negative for unusual rash or pruritis. Physical Exam Date Time Temp Pulse Resp B/P (MAP) Pulse Ox O2 Delivery O2 Flow Rate FiO2 01/23/17 07:23 37.4 86 17 118/74 (89) 99 Oxymask 10.0 01/23/17 03:35 38.4 99 16 138/83 (101) 100 Oxymask 10.0 01/22/17 23:15 37.2 87 16 133/83 (100) 100 Oxymask 10.0 01/22/17 23:15 Oxymask 10.0 01/22/17 18:44 100 Oxymask 10.0 01/22/17 16:00 100 Oxymask 10.0 01/22/17 16:00 37.2 83 16 142/72 (95) 100 Oxymask 10.0 01/22/17 16:00 100 Oxymask 10.0 01/22/17 15:35 37.1 76 20 132/85 100 Oxymask 10 01/22/17 15:20 37.1 73 20 132/75 100 Oxymask 10 01/22/17 15:05 37.1 78 18 134/71 100 Oxymask 10 01/22/17 14:50 78 18 126/72 100 Oxymask 10 01/22/17 14:35 70 18 127/68 100 Oxymask 10 01/22/17 14:20 36.9 67 16 130/70 100 Oxymask 10 01/22/17 14:10 36.9 69 16 145/95 100 Oxymask 10 01/22/17 13:55 36.9 71 16 133/69 97 Oxymask 10 01/22/17 13:40 36.9 74 16 127/77 97 Room Air 01/22/17 13:30 36.9 71 16 134/73 97 Room Air 01/22/17 13:20 36.9 70 16 133/66 98 Room Air 01/22/17 13:10 70 16 134/77 100 Oxymask 10 01/22/17 13:01 36.5 73 16 134/74 100 Oxymask 10 Constitutional: vitals are stable. Eyes: Eyes are GERALD EOMI without conjuctival erythema or icterus. ENT: External examination was negative for masses. Neck: Negative for masses or palpable thyromegaly Respiratory: Lung sounds were generally clear bilaterally Cardiovascular: Heart was RRR without significant murmur, gallops aoe rubs Gastrointestinal: No palpable hepatic or splenomegaly. The abdomen was soft with normal bowel sounds. Lymphatic system: there was no palpable peripheral lymphadenopathy Musculoskeletal System: The musculoskeletal system seemed concordant with age. Skin: The skin was negative for jaundice. Does have Tinea right inquinal area and affecting lower part of her back. Neurologic exam: The exam was negative for any focal findings. Deep tendon reflexes were equal and symmetrical. Psychiatric exam: Was essentially negative with normal mood and effect. Breast exam: Not done Extremities: negative for edema or tenderness. Laboratory Results Last 24 Hours Test 01/23/17 06:22 White Blood Count 0.46 K/uL Red Blood Count 3.17 M/uL Hemoglobin 9.8 g/dL Hematocrit 28.7 % Mean Corpuscular Volume 90.5 fL Mean Corpuscular Hemoglobin 30.9 pg Mean Corpuscular Hemoglobin Concent 34.1 g/dl RDW Standard Deviation 45.1 fL RDW Coefficient of Variation 13.6 % Platelet Count 80 K/uL Mean Platelet Volume 9.9 fL Sodium Level 132 mmol/L Potassium Level 3.3 mmol/L Chloride Level 99 mmol/L Carbon Dioxide Level 28 mmol/L Anion Gap 5.0 mmol/L Blood Urea Nitrogen 14 mg/dl Creatinine 0.74 mg/dl Est Creatinine Clear Calc Drug Dose 61.8 ml/min Estimated GFR () 91.9 Estimated GFR (Non- 79.3 BUN/Creatinine Ratio 19.5 Random Glucose 104 mg/dl Calcium Level 8.9 mg/dl Assessment & Plan Metastatic non-small cell lung carcinoma Pancytopenia secondary to chemotherapy. I would anticipate the leukopenia to recover within the next 2-3 days. G-CSF will be incorporated now. If she develops a fever once again and culture should be done and antibiotics begun. We will follow along with you
[2017-01-23] MEDS ORDERED: FILGRASTIM 300 MCG/ML 1 ML VIAL SQ ONE (12:15)
--- NOTE | 2017-01-23 12:31 | SURGICAL CONSULTATION ---
DATE OF CONSULTATION: 01/23/2017 DATE OF CONSULTATION: 01/23/2017 CONSULTING PHYSICIAN: Dr. Martell Newell. REASON FOR CONSULTATION: Left pneumothorax. HISTORY OF PRESENT ILLNESS: Chiara Granados is a 76-year-old female who is well known to me. She presented to me back in December with a sternal lesion which was hypermetabolic. I was asked to biopsy this to get enough tissue to do molecular studies and immunohistochemical stains. On 12/28/2016 the patient underwent an uncomplicated open biopsy of her sternum. She did well with this and I have been following her and she had some erythema, some drainage from the wound, but I do not think this represented an infection. She received radiation and pain in the bone improved. It should be noted I made this incision below the lesion, so we tunneled upward. She underwent port insertion by Dr. Martell Newell yesterday and was noted to have a small iatrogenic pneumothorax on the left after this left A-port insertion was performed. Kept her overnight on oxygen and this has gotten larger. She really does not have symptoms. I saw her today. I have been asked to comment on this pneumothorax. She is not short of breath. PAST MEDICAL HISTORY: 1. Stage IV non-small cell lung carcinoma with metastases to her sternum. 2. Hypercholesterolemia. 3. Hypothyroidism. 4. History of cigarette smoking. PAST SURGICAL HISTORY: 1. Insertion of left Port-A-Cath. 2. Biopsy of sternum. 3. D&C. 4. Bilateral tubal ligation. 5. Tonsillectomy and adenoidectomy. MEDICATIONS: Please see chart. ALLERGIES: AZITHROMYCIN, ERYTHROMYCIN, AMITRIPTYLINE. SOCIAL HISTORY: The patient lives with her family including her and her children and her are very supportive. FAMILY MEDICAL HISTORY: Noncontributory. REVIEW OF SYSTEMS: The patient has lost no weight. She actually "felt fine" until she came in. She does get tired. Her chest pain has resolved. She has had no GI or symptoms. She does have some back pain attributed to laying in the hospital bed overnight. PHYSICAL EXAMINATION: GENERAL: Elderly appearing female who is awake, alert and oriented. HEAD, EYES, EARS, NOSE, AND THROAT: Her extraocular movements are intact. Pupils are equal, round and reactive. Sclerae are anicteric. She has no nasolabial flattening. Tongue is midline. NECK: Supple. She has a Port-A-Cath which is accessed in her left infraclavicular area. She has mild decreased breath sounds both sides with a few rhonchi. Her sternal incision is clean with very mild erythema which is improved. There has been a fluctuance, but I believe this is due to the beads. The wound appears to be drying now. ABDOMEN: Soft, nontender. EXTREMITIES: She really not much in the way of peripheral edema and she does have peripheral pulses. NEUROLOGIC: She is intact. ASSESSMENT AND PLAN: Iatrogenic left pneumothorax. We will continue to follow this. One concern I have about this patient is the fact that her white count is quite low from her recent chemotherapy. I would be quite concerned about the port and her sternal site. Her white count was 750 yesterday, down to 400 mL today. I have discussed this with Dr. Newell and Danna Tinoco PA-C and will see about getting oncology involved possibly administration of Neupogen. MTDD
[2017-01-23 15:15] VITALS: BP 124/80; PULSE 84; TEMP 37.6; O2SAT 96
[2017-01-23 16:15] VITALS: O2SAT 96
[2017-01-23 23:33] VITALS: BP 114/73; PULSE 86; TEMP 37.1; O2SAT 97
[2017-01-24] MEDS: ONDANSETRON 8 MG TAB PO PRN ×3 (01:10→18:46)
[2017-01-24] MEDS: MICONAZOLE NITRATE POWDER 43 GM EXT PRN ×2 (06:04→22:07)
[2017-01-24] MEDS: LEVOTHYROXINE 88 MCG TAB PO SCH (06:18)
[2017-01-24 07:04] VITALS: BP 122/74; PULSE 87; TEMP 37.6; O2SAT 97
--- NOTE | 2017-01-24 07:45 | DIAGNOSTIC IMAGING REPORT ---
CHEST ONE VIEW PORTABLE HISTORY: pneumothorax COMPARISON: Chest 01/23/2017. FINDINGS: The left subclavian Port-A-Cath terminus in the SVC. The right lung is clear. The heart is normal in size. Left medial lung base linear densities persist and favor subsegmental atelectasis. There is again noted a left pneumothorax. This is likely similar in size compared to the prior study. The apical component has slightly decreased in size measuring 3. One centimeters, previous measuring 3.6 cm. However, the basilar component has slightly progressed measuring 2.1 cm, previously measuring 1.3 cm. Left suprahilar mass is again noted. This measures 3.4 cm. No mediastinal shift. IMPRESSION: The moderate sized left pneumothorax is likely similar in size compared to the prior study. This is slightly decreased in size at the apical component but increase in size at the basilar component as described above. Electronically signed by: Yang Billy M.D. 01/24/2017 7:44 AM Dictated Date/Time: 01/24/2017 7:40 AM
[2017-01-24 07:57] LABS: HEMATOCRIT 29.1 % (37-47); MEAN CELL VOLUME 90.4 fL (80-100); MEAN CORPUSCULAR HEMOGLOBIN 31.1 pg (25-34); MEAN CORPUSCULAR HGB CONC 34.4 g/dl (32-36); MEAN PLATELET VOLUME 10.5 fL (7.4-10.4); PLATELET COUNT 78 K/uL (130-400); RED BLOOD COUNT 3.22 M/uL (4.2-5.4); WHITE BLOOD COUNT 0.91 K/uL (4.8-10.8)
[2017-01-24] MEDS: CHECK FENTANYL PATCH PLACEMENT SCH (08:00)
--- NOTE | 2017-01-24 08:25 | Surgery Progress Note ---
Surgery Progress Note Date of Service Jan 24, 2017. Subjective No SOB, No nausea, No vomiting Having mild discomfort at the Aport site Had 2 diarrheal bm's No pain with deep inspiration Appetite poor Objective Vital Signs: Date Time Temp Pulse Resp B/P (MAP) Pulse Ox O2 Delivery O2 Flow Rate FiO2 01/24/17 07:04 37.6 87 19 122/74 (90) 97 Nasal Cannula 2.0 01/23/17 23:55 Nasal Cannula 2.0 01/23/17 23:33 37.1 86 17 114/73 (87) 97 01/23/17 16:15 96 Nasal Cannula 2.0 01/23/17 15:15 37.6 84 16 124/80 (95) 96 Nasal Cannula 2.0 Respiratory/Chest: + decreased breath sounds (mild on left), + rhonchi ( scattered onleft) Laboratory Results: Results Past 24 Hours Test 01/24/17 06:44 Range/Units White Blood Count 0.91 4.8-10.8 K/uL Red Blood Count 3.22 4.2-5.4 M/uL Hemoglobin 10.0 12.0-16.0 g/dL Hematocrit 29.1 37-47 % Mean Corpuscular Volume 90.4 80-100 fL Mean Corpuscular Hemoglobin 31.1 25-34 pg Mean Corpuscular Hemoglobin Concent 34.4 32-36 g/dl Platelet Count 78 130-400 K/uL Mean Platelet Volume 10.5 7.4-10.4 fL RDW Standard Deviation 44.8 36.4-46.3 fL RDW Coefficient of Variation 13.6 11.5-14.5 % Diagnostic Interpretation: CXR (01/24/17): COMPARISON: Chest 01/23/2017. FINDINGS: The left subclavian Port-A-Cath terminus in the SVC. The right lung is clear. The heart is normal in size. Left medial lung base linear densities persist and favor subsegmental atelectasis. There is again noted a left pneumothorax. This is likely similar in size compared to the prior study. The apical component has slightly decreased in size measuring 3. One centimeters, previous measuring 3.6 cm. However, the basilar component has slightly progressed measuring 2.1 cm, previously measuring 1.3 cm. Left suprahilar mass is again noted. This measures 3.4 cm. No mediastinal shift. IMPRESSION: The moderate sized left pneumothorax is likely similar in size compared to the prior study. This is slightly decreased in size at the apical component but increase in size at the basilar component as described above. Assessment & Plan Pneumothorax S/P Aport placement Size of pneumothorax unchanged No chest pain or SOB Management as per Dr. Dash Diarrhea, consider C. diff
[2017-01-24 08:32] LABS: DOHLE BODIES 2+; LARGE PLATELETS 2+; TOXIC GRANULATION 2+
[2017-01-24 08:34] LABS: COMPLETE YES; EOSINOPHIL % 8.8 %; LYMPHOCYTE % 10.6 %; NEUTROPHILS % 25.7 %
[2017-01-24] MEDS: FILGRASTIM 300 MCG/ML 1 ML VIAL SQ SCH (09:04)
--- NOTE | 2017-01-24 09:11 | SURGERY PROGRESS NOTE ---
DATE: 01/24/2017 DATE: 01/24/2017 Ms. Granados was seen today on 01/24/2017. She has an iatrogenic left pneumothorax; however, it is a bit smaller at the apex, although I do not think it has changed much at the base. I am on the fence. I would not put a tube in this lady, especially in view of the fact that she is neutropenic. Dr. Mcnamara's comments on this were greatly appreciated. Her white count is back up to 910 today. Her platelet count is stable at 78,000. I would continue to observe her in the hospital for another day. I have discussed this with Dr. Burnham. As we have not seen much in the way to change I think I would allow her to be discharged in the next day or two.
[2017-01-24] MEDS: PRAVASTATIN SOD 20 MG TAB PO SCH (10:05)
[2017-01-24 10:21] VITALS: O2SAT 99
--- NOTE | 2017-01-24 11:21 | Hematology/Oncology Prog Note ---
Hematology/Onc Progress Note Date of Service Jan 24, 2017. Diagnoses Metastatic adenocarcinoma of the lung Pneumothorax Pancytopenia secondary to chemotherapy Low-grade fever Medications Medications Administered Medications (Trade) Dose Ordered Sig/Adama Route Start Time Stop Time Status Last Admin Dose Admin Cefazolin Sodium 10 ml @ 2.5 mls/min PREOP IV 01/22/17 06:00 01/22/17 15:12 DC 01/22/17 11:55 2.5 MLS/MIN Lactated Ringer's 1,000 ml @ 15 mls/hr Q24H IV 01/22/17 06:00 01/22/17 15:12 DC 01/22/17 09:49 15 MLS/HR Heparin Sodium (Porcine) (Heparin Iv Bolus) 10,000 unit STK-MED ONCE .ROUTE 01/22/17 11:40 01/22/17 11:41 DC 01/22/17 12:39 5,000 UNIT Bupivacaine HCl (Marcaine 0.5% MPF Inj) 30 ml STK-MED ONCE .ROUTE 01/22/17 11:40 01/22/17 11:41 DC 01/22/17 12:39 30 ML Oxycodone/ Acetaminophen (Percocet 5-325mg Tab) 1 tab Q4H PRN PO 01/22/17 13:15 01/22/17 18:05 DC 01/22/17 16:41 1 TAB Levothyroxine Sodium (Synthroid Tab) 88 mcg Q2D PO 01/24/17 07:00 02/23/17 06:59 01/24/17 06:18 88 MCG Levothyroxine Sodium (Synthroid Tab) 100 mcg Q2D PO 01/23/17 07:00 02/22/17 06:59 01/23/17 06:25 100 MCG Lorazepam (Ativan Tab) 0.5 mg HS PRN PO 01/22/17 15:30 02/21/17 15:29 01/22/17 23:15 0.5 MG Ondansetron HCl (Zofran Tab) 8 mg Q8H PRN PO 01/22/17 15:30 01/23/17 04:01 DC 01/22/17 21:55 8 MG Pravastatin Sodium (Pravachol Tab) 20 mg QAM PO 01/23/17 09:00 02/22/17 08:59 01/24/17 10:05 20 MG Fentanyl (Duragesic Patch) 12 mcg Q3D@1800 TD 01/22/17 18:00 02/05/17 17:59 01/22/17 20:10 12 MCG Miscellaneous Information (Check Fentanyl Patch Placement) 1 ea QS N/A 01/23/17 00:00 02/22/17 00:00 01/24/17 08:00 1 EA Oxycodone/ Acetaminophen (Percocet 5-325mg Tab) 1 tab Q6 PO 01/22/17 18:15 01/23/17 18:14 DC 01/23/17 18:42 1 TAB Promethazine HCl 25 mg/Sodium Chloride 51 ml @ 204 mls/hr NOW STAT IV 01/23/17 03:59 01/23/17 04:13 DC 01/23/17 04:08 204 MLS/HR Acetaminophen 100 ml @ 400 mls/hr Q8H PRN IV 01/23/17 04:15 02/22/17 04:14 01/23/17 04:35 400 MLS/HR Ondansetron HCl (Zofran Tab) 8 mg Q6H PRN PO 01/23/17 04:15 02/22/17 04:14 01/24/17 11:01 8 MG Heparin Sodium (Porcine) (Heparin 100 Unit/ml 5ml Flush) 5 ml PRN PRN IV 01/23/17 09:00 02/22/17 08:59 01/24/17 09:54 5 ML Filgrastim (Neupogen Sq) 300 mcg DAILY SQ 01/24/17 09:00 02/23/17 08:59 01/24/17 09:04 300 MCG Filgrastim (Neupogen Sq) 300 mcg ONE ONCE SQ 01/23/17 12:15 01/23/17 12:16 DC 01/23/17 12:13 300 MCG Miconazole Nitrate (Desenex Powder) 1 appln PRN PRN EXT 01/24/17 05:00 02/23/17 04:59 01/24/17 06:04 1 APPLN Subjective She has nausea that has been ongoing for at least a few days she states that she is come in the hospital. She is also having loose stools she states. She denies any blood in her stool. She denies any shortness of breath. She yesterday continued to have a low-grade temperature. She is at bedrest. Pneumothorax is felt to be essentially unchanged. She denies any abdominal pain and in fact she denies any pain. Review of Systems: Constitutional: Negative for night sweats, low-grade temperature yesterday Eyes: Negative for event change of vision ENT: Negative for epistaxis, nasal discharge, sore throat, or deafness Cardiovascular: Negative for chest pain, palpitations, dizziness, diaphoresis Respiratory: Negative for new shortness of breath,hemoptysis, or purulent cough Gastrointestinal: Negative for hematemesis, melena, or dyspepsia. Positive for nausea and emesis as stated Integumentary (skin): Negative for rash or jaundice discoloration Genitourinary: Negative for urinary frequency, hematuria, or dysuria Neurological: Negative for weakness, seizure activity, headache, or dizziness Lymphatic/Hematologic: Negative for petechiae, bleeding or new adenopathy Musculoskeletal: Negative for new joint or back pain Allergic/Immunologic: Negative for unusual rash or pruritis. Vital Signs Vital Signs Past 12 Hours Date Time Temp Pulse Resp B/P (MAP) Pulse Ox O2 Delivery O2 Flow Rate FiO2 01/24/17 10:21 99 Nasal Cannula 2.0 01/24/17 07:04 37.6 87 19 122/74 (90) 97 Nasal Cannula 2.0 01/23/17 23:55 Nasal Cannula 2.0 01/23/17 23:33 37.1 86 17 114/73 (87) 97 Physical Exam Constitutional: vitals are stable. Eyes: Eyes are GERALD EOMI without conjuctival erythema or icterus. ENT: External examination was negative for masses. Neck: Negative for masses or palpable thyromegaly Respiratory: Lung sounds were generally clear bilaterally Cardiovascular: Heart was RRR without significant murmur, gallops aoe rubs Gastrointestinal: No palpable hepatic or splenomegaly. The abdomen was soft with normal bowel sounds. Lymphatic system: there was no palpable peripheral lymphadenopathy Musculoskeletal System: The musculoskeletal system seemed concordant with age. Skin: The skin was negative for jaundice. Neurologic exam: The exam was negative for any focal findings. Deep tendon reflexes were equal and symmetrical. Psychiatric exam: Was essentially negative with normal mood and effect. Breast exam: ot done Extremities: negative for edema Laboratory Last 24 Hours Test 12/16/17 06:44 White Blood Count 0.91 K/uL Red Blood Count 3.22 M/uL Hemoglobin 10.0 g/dL Hematocrit 29.1 % Mean Corpuscular Volume 90.4 fL Mean Corpuscular Hemoglobin 31.1 pg Mean Corpuscular Hemoglobin Concent 34.4 g/dl Platelet Count 78 K/uL Mean Platelet Volume 10.5 fL RDW Standard Deviation 44.8 fL RDW Coefficient of Variation 13.6 % Neutrophils % (Manual) 25.7 % Lymphocytes % (Manual) 10.6 % Monocytes % (Manual) 54.9 % Eosinophils % (Manual) 8.8 % Neutrophils # (Manual) 0.23 K/uL Total Absolute Neutrophils 0.23 K/uL Lymphocytes # (Manual) 0.10 K/uL Total Absolute Lymphocytes 0.10 K/uL Monocytes # (Manual) 0.50 K/uL Eosinophils # (Manual) 0.08 K/uL Toxic Granulation 2+ Dohle Bodies 2+ Large Platelets 2+ Assessment & Plan Pancytopenia secondary to chemotherapy. I would suspect her blood counts we back to something very reasonable within a day or 2. However I am concerned that she continues to have at least low-grade temperatures. She is prone towards hypoxemia with a pneumothorax. She tells me she can take penicillin no allergies to that drug. She does have allergies that are listed but I believe that a drug like cefepime could be used. Blood cultures have been drawn. The nausea might be secondary to the fentanyl patches that she is on. Diarrhea could be related to the cytopenia particularly Taxol and carboplatinum. I feel compelled to begin an antibiotic at this point while she recovers from her cytopenia.
[2017-01-24] MEDS ORDERED: NURSING VERBAL MED ORDER ONE (13:45)
[2017-01-24] MEDS: TRAMADOL HCL 50 MG TAB PO PRN ×2 (13:57→21:46)
[2017-01-24] MEDS ORDERED: PROCHLORPERAZINE 5 MG/ML 2 ML VIAL IM ONE (14:00)
[2017-01-24] MEDS ORDERED: CEFEPIME IV 2,000 MG in DEXTROSE 5% 100ML 100 ML IV SCH (14:00)
[2017-01-24] MEDS: CEFEPIME IV 2,000 MG in SYRINGE 7.5 ML IV SCH ×2 (14:22→21:46)
[2017-01-24 14:57] VITALS: BP 115/74; PULSE 80; TEMP 37.1; O2SAT 96
[2017-01-24 22:54] VITALS: BP 114/70; PULSE 82; TEMP 37.2; O2SAT 97
[2017-01-25] MEDS: ONDANSETRON 8 MG TAB PO PRN ×4 (00:44→20:30)
[2017-01-25] MEDS: LEVOTHYROXINE 100 MCG TAB PO SCH (06:17)
[2017-01-25] MEDS: CEFEPIME IV 2,000 MG in SYRINGE 7.5 ML IV SCH ×3 (06:18→21:54)
[2017-01-25] MEDS: TRAMADOL HCL 50 MG TAB PO PRN ×3 (07:23→19:06)
[2017-01-25 07:29] VITALS: BP 129/81; PULSE 79; TEMP 36.5; O2SAT 96
[2017-01-25 07:52] VITALS: O2SAT 98
[2017-01-25 08:28] LABS: MEAN CELL VOLUME 89.9 fL (80-100); MEAN CORPUSCULAR HEMOGLOBIN 30.7 pg (25-34); MEAN CORPUSCULAR HGB CONC 34.2 g/dl (32-36); RED BLOOD COUNT 3.45 M/uL (4.2-5.4)
[2017-01-25 09:00] LABS: ANISOCYTOSIS PRESENT; BASO % 0.5 %; BASO ABS # 0.02 K/uL (0-0.2); COMPLETE YES; DOHLE BODIES 2+; EOS % 3.6 %; IG% 1.2 %; LARGE PLATELETS 1+; LYMPH ABS # 0.25 K/uL (1.2-3.4); MONO % 23.6 %; NEUT % 65.1 %; PLATELET COUNT 71 K/uL (130-400); TOXIC GRANULATION 2+
[2017-01-25] MEDS: PRAVASTATIN SOD 20 MG TAB PO SCH (09:02)
[2017-01-25] MEDS: FILGRASTIM 300 MCG/ML 1 ML VIAL SQ SCH (09:04)
--- NOTE | 2017-01-25 10:44 | Surgery Progress Note ---
Subjective Date of Service: Jan 25, 2017. Pt. denies any worsening SOB. No CP. No fevers, shakes, chills. Objective Vitals Date Time Temp Pulse Resp B/P (MAP) Pulse Ox O2 Delivery O2 Flow Rate FiO2 01/25/17 07:52 98 Nasal Cannula 2.0 01/25/17 07:29 36.5 79 18 129/81 (97) 96 Nasal Cannula 2.0 01/24/17 23:40 Nasal Cannula 2.0 01/24/17 22:54 37.2 82 14 114/70 (85) 97 Nasal Cannula 2.0 01/24/17 15:30 Nasal Cannula 2.0 01/24/17 14:57 37.1 80 18 115/74 (88) 96 Room Air Physical Exam General: + well developed, + well nourished, No distress CV: + RRR Pulmonary: + pertinent finding (BS are decreased on right side), No accessory muscle use, No respiratory distress Neurologic: + alert & oriented x 3 Incisions: Subxiphoid incision examined--there is decreased erythema noted along wound edges; well approximated with nylon sutures Assessment & Plan 76 year old female with metastatic adenocarcinoma -continue local wound care to incision PNEUMOTHORAX -iatrogenic from A-port insertion -pt. stable so will continue to monitor for now -maintain on 2 liters of [place] oxygen
--- NOTE | 2017-01-25 10:48 | Surgery Progress Note ---
Surgery Progress Note Date of Service Jan 25, 2017. Subjective Feels a little better today Appetite still poor Feels weak Objective Vital Signs: Date Time Temp Pulse Resp B/P (MAP) Pulse Ox O2 Delivery O2 Flow Rate FiO2 01/25/17 07:52 98 Nasal Cannula 2.0 01/25/17 07:29 36.5 79 18 129/81 (97) 96 Nasal Cannula 2.0 01/24/17 23:40 Nasal Cannula 2.0 01/24/17 22:54 37.2 82 14 114/70 (85) 97 Nasal Cannula 2.0 01/24/17 15:30 Nasal Cannula 2.0 01/24/17 14:57 37.1 80 18 115/74 (88) 96 Room Air Respiratory/Chest: chest non-tender, + decreased breath sounds (on left) Incision(s): clean, dry, intact Laboratory Results: Results Past 24 Hours Test 01/25/17 08:12 Range/Units White Blood Count 4.20 4.8-10.8 K/uL Red Blood Count 3.45 4.2-5.4 M/uL Hemoglobin 10.6 12.0-16.0 g/dL Hematocrit 31.0 37-47 % Mean Corpuscular Volume 89.9 80-100 fL Mean Corpuscular Hemoglobin 30.7 25-34 pg Mean Corpuscular Hemoglobin Concent 34.2 32-36 g/dl Platelet Count 71 130-400 K/uL Mean Platelet Volume 10.0 7.4-10.4 fL Neutrophils (%) (Auto) 65.1 % Lymphocytes (%) (Auto) 6.0 % Monocytes (%) (Auto) 23.6 % Eosinophils (%) (Auto) 3.6 % Basophils (%) (Auto) 0.5 % Neutrophils # (Auto) 2.74 1.4-6.5 K/uL Lymphocytes # (Auto) 0.25 1.2-3.4 K/uL Monocytes # (Auto) 0.99 0.11-0.59 K/uL Eosinophils # (Auto) 0.15 0-0.5 K/uL Basophils # (Auto) 0.02 0-0.2 K/uL RDW Standard Deviation 44.6 36.4-46.3 fL RDW Coefficient of Variation 13.8 11.5-14.5 % Immature Granulocyte % (Auto) 1.2 % Immature Granulocyte # (Auto) 0.05 0.00-0.02 K/uL Toxic Granulation 2+ Dohle Bodies 2+ Large Platelets 1+ Anisocytosis PRESENT Microbiology Results 01/24/17 C.difficile Toxin B Gene (PCR) - Final, Complete No C. difficile toxin B gene detected Diagnostic Interpretation: CXR pending Assessment & Plan Pneumothorax S/P Aport placement CXR unchanged No chest pain or SOB Management as per Dr. Dash's team WBC above 4 today Diarrhea, improved, C. diff negative Would keep one more day
--- NOTE | 2017-01-25 11:41 | DIAGNOSTIC IMAGING REPORT ---
CHEST 2 VIEWS ROUTINE CLINICAL HISTORY: 76 years-old Female presenting with Reevaluate pneumothorax. TECHNIQUE: PA and lateral views of the chest were obtained. COMPARISON: 01/24/[address] from 11/25/2016. FINDINGS: Left subclavian Mediport terminates near the superior cavoatrial junction. Atherosclerosis of the aortic arch. Cardiac silhouette normal in size. Mass in the left upper lobe demonstrated on CT from 11/25/2016 noted. Persistent moderate left pneumothorax. This is grossly stable in size. Right lung and pleural space clear. Osseous structures normal. Upper abdomen normal. IMPRESSION: 1. Grossly stable moderate left pneumothorax. 2. Left upper lobe mass. Electronically signed by: Jose Guadalupe Calvert M.D. 01/25/2017 11:40 AM Dictated Date/Time: 01/25/2017 11:36 AM
--- NOTE | 2017-01-25 12:06 | Hematology/Oncology Prog Note ---
Hematology/Onc Progress Note Date of Service Jan 25, 2017. Diagnoses Metastatic adenocarcinoma of the lung Pneumothorax Pancytopenia secondary to chemotherapy Low-grade fever Medications Medications Administered Medications (Trade) Dose Ordered Sig/Adama Route Start Time Stop Time Status Last Admin Dose Admin Cefazolin Sodium 10 ml @ 2.5 mls/min PREOP IV 01/22/17 06:00 01/22/17 15:12 DC 01/22/17 11:55 2.5 MLS/MIN Lactated Ringer's 1,000 ml @ 15 mls/hr Q24H IV 01/22/17 06:00 01/22/17 15:12 DC 01/22/17 09:49 15 MLS/HR Heparin Sodium (Porcine) (Heparin Iv Bolus) 10,000 unit STK-MED ONCE .ROUTE 01/22/17 11:40 01/22/17 11:41 DC 01/22/17 12:39 5,000 UNIT Bupivacaine HCl (Marcaine 0.5% MPF Inj) 30 ml STK-MED ONCE .ROUTE 01/22/17 11:40 01/22/17 11:41 DC 01/22/17 12:39 30 ML Oxycodone/ Acetaminophen (Percocet 5-325mg Tab) 1 tab Q4H PRN PO 01/22/17 13:15 01/22/17 18:05 DC 01/22/17 16:41 1 TAB Levothyroxine Sodium (Synthroid Tab) 88 mcg Q2D PO 01/24/17 07:00 02/23/17 06:59 01/24/17 06:18 88 MCG Levothyroxine Sodium (Synthroid Tab) 100 mcg Q2D PO 01/23/17 07:00 02/22/17 06:59 01/25/17 06:17 100 MCG Lorazepam (Ativan Tab) 0.5 mg HS PRN PO 01/22/17 15:30 02/21/17 15:29 01/22/17 23:15 0.5 MG Ondansetron HCl (Zofran Tab) 8 mg Q8H PRN PO 01/22/17 15:30 01/23/17 04:01 DC 01/22/17 21:55 8 MG Pravastatin Sodium (Pravachol Tab) 20 mg QAM PO 01/23/17 09:00 02/22/17 08:59 01/25/17 09:02 20 MG Tramadol HCl (Ultram Tab) 50 mg Q4H PRN PO 01/22/17 15:30 02/21/17 15:29 01/25/17 11:38 50 MG Fentanyl (Duragesic Patch) 12 mcg Q3D@1800 TD 01/22/17 18:00 01/24/17 13:50 DC 01/22/17 20:10 12 MCG Miscellaneous Information (Check Fentanyl Patch Placement) 1 ea QS N/A 01/23/17 00:00 01/24/17 13:50 DC 01/24/17 08:00 1 EA Oxycodone/ Acetaminophen (Percocet 5-325mg Tab) 1 tab Q6 PO 01/22/17 18:15 01/23/17 18:14 DC 01/23/17 18:42 1 TAB Promethazine HCl 25 mg/Sodium Chloride 51 ml @ 204 mls/hr NOW STAT IV 01/23/17 03:59 01/23/17 04:13 DC 01/23/17 04:08 204 MLS/HR Acetaminophen 100 ml @ 400 mls/hr Q8H PRN IV 01/23/17 04:15 02/22/17 04:14 01/23/17 04:35 400 MLS/HR Ondansetron HCl (Zofran Tab) 8 mg Q6H PRN PO 01/23/17 04:15 02/22/17 04:14 01/25/17 07:22 8 MG Heparin Sodium (Porcine) (Heparin 100 Unit/ml 5ml Flush) 5 ml PRN PRN IV 01/23/17 09:00 02/22/17 08:59 01/25/17 08:12 5 ML Filgrastim (Neupogen Sq) 300 mcg DAILY SQ 01/24/17 09:00 02/23/17 08:59 01/25/17 09:04 300 MCG Filgrastim (Neupogen Sq) 300 mcg ONE ONCE SQ 01/23/17 12:15 01/23/17 12:16 DC 01/23/17 12:13 300 MCG Miconazole Nitrate (Desenex Powder) 1 appln PRN PRN EXT 01/24/17 05:00 02/23/17 04:59 01/24/17 22:07 1 APPLN Prochlorperazine Edisylate (Compazine Inj) 10 mg TODAY@1400 ONCE IM 01/24/17 14:00 01/24/17 14:01 DC 01/24/17 13:57 10 MG Cefepime HCl 2000 mg/Syringe 20 ml @ 5 mls/min Q8H IV 01/24/17 14:00 02/03/17 13:59 01/25/17 06:18 5 MLS/MIN Subjective Nausea much less as is a diarrhea. White cell is now headed towards normal platelet count 71,000. She denies any significant new pain. The fentanyl patch is been stopped. She is afebrile. Cultures are pending Review of Systems: Constitutional: Negative for night sweats, or fever Eyes: Negative for event change of vision ENT: Negative for epistaxis, nasal discharge, sore throat, or deafness Cardiovascular: Negative for chest pain, palpitations, dizziness, diaphoresis Respiratory: Negative for new shortness of breath,hemoptysis, or purulent cough Gastrointestinal: Negative for worsening diarrhea, hematemesis, melena, nausea , vomiting, or dyspepsia Integumentary (skin): Negative for rash or jaundice discoloration Genitourinary: Negative for urinary frequency, hematuria, or dysuria Neurological: Negative for weakness, seizure activity, headache, or dizziness Lymphatic/Hematologic: Negative for petechiae, bleeding or new adenopathy Musculoskeletal: Negative for new joint or back pain Allergic/Immunologic: Negative for unusual rash or pruritis. Vital Signs Vital Signs Past 12 Hours Date Time Temp Pulse Resp B/P (MAP) Pulse Ox O2 Delivery O2 Flow Rate FiO2 01/25/17 07:52 98 Nasal Cannula 2.0 01/25/17 07:29 36.5 79 18 129/81 (97) 96 Nasal Cannula 2.0 Physical Exam Constitutional: vitals are stable. Limited exam today Eyes: Eyes are GERALD EOMI without conjuctival erythema or icterus. ENT: External examination was negative for masses. Neck: Negative for masses or palpable thyromegaly Respiratory: Lung sounds were generally clear bilaterally Cardiovascular: Heart was RRR without significant murmur, gallops aoe rubs Gastrointestinal: No palpable hepatic or splenomegaly. The abdomen was soft with normal bowel sounds. Lymphatic system: there was no palpable peripheral lymphadenopathy Musculoskeletal System: The musculoskeletal system seemed concordant with age. Skin: The skin was negative for jaundice. Extremities: without significant edema Laboratory Last 24 Hours Test 01/25/17 08:12 White Blood Count 4.20 K/uL Red Blood Count 3.45 M/uL Hemoglobin 10.6 g/dL Hematocrit 31.0 % Mean Corpuscular Volume 89.9 fL Mean Corpuscular Hemoglobin 30.7 pg Mean Corpuscular Hemoglobin Concent 34.2 g/dl Platelet Count 71 K/uL Mean Platelet Volume 10.0 fL Neutrophils (%) (Auto) 65.1 % Lymphocytes (%) (Auto) 6.0 % Monocytes (%) (Auto) 23.6 % Eosinophils (%) (Auto) 3.6 % Basophils (%) (Auto) 0.5 % Neutrophils # (Auto) 2.74 K/uL Lymphocytes # (Auto) 0.25 K/uL Monocytes # (Auto) 0.99 K/uL Eosinophils # (Auto) 0.15 K/uL Basophils # (Auto) 0.02 K/uL RDW Standard Deviation 44.6 fL RDW Coefficient of Variation 13.8 % Immature Granulocyte % (Auto) 1.2 % Immature Granulocyte # (Auto) 0.05 K/uL Toxic Granulation 2+ Dohle Bodies 2+ Large Platelets 1+ Anisocytosis PRESENT Assessment & Plan Pancytopenia secondary to chemotherapy. BC is now normal neutropenic precautions can stop. This should be the last day of her Neupogen. Cultures are still pending. Provided that the blood cultures are negative - the antibiotics can stop. Depending on the results of chest x-rays I suspect her discharge would be eminent in about 24 hours. I suspect the nausea that she was having is from the fentanyl patch. The diarrhea has subsided but that was probably a side effect of the chemotherapy. We will incorporate Neulasta into her future chemotherapy regimens.
[2017-01-25 15:52] VITALS: BP 102/72; PULSE 80; TEMP 36.6; O2SAT 99
[2017-01-25] MEDS: OXYCODONE/ACETAMINOPHEN 5-325 TAB PO PRN (22:06)
[2017-01-25 22:45] VITALS: BP 115/74; PULSE 88; TEMP 37; O2SAT 97
[2017-01-26] MEDS: ONDANSETRON 8 MG TAB PO PRN ×3 (02:39→16:04)
[2017-01-26 02:40] VITALS: O2SAT 95
[2017-01-26] MEDS: CEFEPIME IV 2,000 MG in SYRINGE 7.5 ML IV SCH ×2 (06:04→14:13)
[2017-01-26] MEDS: LEVOTHYROXINE 88 MCG TAB PO SCH (06:04)
[2017-01-26 06:13] LABS: HEMATOCRIT 29.8 % (37-47); MEAN CELL VOLUME 89.8 fL (80-100); MEAN CORPUSCULAR HGB CONC 34.6 g/dl (32-36); RED BLOOD COUNT 3.32 M/uL (4.2-5.4); WHITE BLOOD COUNT 11.14 K/uL (4.8-10.8)
[2017-01-26 06:21] LABS: MEAN PLATELET VOLUME 10.3 fL (7.4-10.4); PLATELET COUNT 68 K/uL (130-400)
[2017-01-26 07:15] VITALS: BP 118/74; PULSE 78; TEMP 36.9; O2SAT 98
[2017-01-26 07:44] LABS: BASO ABS # 0.29 K/uL (0-0.2); BASOPHIL % 2.6 %; COMPLETE YES; DOHLE BODIES 2+; EOSINOPHIL % 5.3 %; LYMPH ABS # 0.59 K/uL (1.2-3.4); LYMPHOCYTE % 5.3 %; MYELOCYTE % 0.9 %; NEUTROPHILS % 82.4 %; TOXIC GRANULATION 2+; VACUOLIZATION 1+
[2017-01-26] MEDS: PRAVASTATIN SOD 20 MG TAB PO SCH (09:09)
[2017-01-26] MEDS: FILGRASTIM 300 MCG/ML 1 ML VIAL SQ SCH (09:10)
--- NOTE | 2017-01-26 09:44 | Surgery Progress Note ---
Subjective Date of Service: Jan 26, 2017. Pt. denies worsening dyspnea. No shakes, chills, fevers. Objective Vitals Date Time Temp Pulse Resp B/P (MAP) Pulse Ox O2 Delivery O2 Flow Rate FiO2 01/26/17 07:15 36.9 78 16 118/74 (89) 98 Room Air 01/26/17 02:40 95 Nasal Cannula 2.0 01/25/17 23:50 Nasal Cannula 2.0 01/25/17 22:45 37.0 88 18 115/74 (88) 97 Nasal Cannula 1.0 01/25/17 15:52 36.6 80 18 102/72 (82) 99 Room Air 01/25/17 15:30 Nasal Cannula 2.0 Physical Exam General: + well developed, + well nourished, No distress CV: + RRR Pulmonary: + pertinent finding (BS are decreased on left side) Neurologic: + alert & oriented x 3 Assessment & Plan 76 year old female with metastatic adenocarcinoma -continue local wound care to incision -pt. has appt. with Dr Dash on 01/29/17 for possible suture removal--if she remains hospitalized this can be addressed while she is in hospital PNEUMOTHORAX -iatrogenic from A-port insertion -pt. stable so will continue to monitor for now--CXR ordered for tomorrow -maintain on 2 liters of NC oxygen
--- NOTE | 2017-01-26 10:32 | Surgery Progress Note ---
Surgery Progress Note Date of Service Jan 26, 2017. Subjective Post OP Day: 4 + ambulating (with assistance), + bowel movement (01/24/17 - loose), + flatus, + pain controlled, + diet (Regular - tolerating), No chest pain, No SOB, No nausea, No vomiting appetite and weakness improving. Reports she still has some diarrhea but that is improving as well. Denies trouble breathing. Currently on 2L O2 via nasal cannula. WBC count up today - 11.14. Objective Vital Signs: Date Time Temp Pulse Resp B/P (MAP) Pulse Ox O2 Delivery O2 Flow Rate FiO2 01/26/17 07:15 36.9 78 16 118/74 (89) 98 Room Air 01/26/17 02:40 95 Nasal Cannula 2.0 01/25/17 23:50 Nasal Cannula 2.0 01/25/17 22:45 37.0 88 18 115/74 (88) 97 Nasal Cannula 1.0 01/25/17 15:52 36.6 80 18 102/72 (82) 99 Room Air 01/25/17 15:30 Nasal Cannula 2.0 01/25/17 07:52 98 Nasal Cannula 2.0 General Appearance: no apparent distress Head: normocephalic, atraumatic Neck: trachea midline Respiratory/Chest: chest non-tender, lungs clear, no respiratory distress, no accessory muscle use, + decreased breath sounds (Mild - Left), + pertinent finding (Access port in place, dressing covering incision site.) Incision(s): clean, dry, intact, no erythema, no drainage Laboratory Results: Results Past 24 Hours Test 01/25/17 08:12 01/25/17 17:22 01/26/17 05:57 Range/Units White Blood Count 4.20 11.14 4.8-10.8 K/uL Red Blood Count 3.45 3.32 4.2-5.4 M/uL Hemoglobin 10.6 10.3 12.0-16.0 g/dL Hematocrit 31.0 29.8 37-47 % Mean Corpuscular Volume 89.9 89.8 80-100 fL Mean Corpuscular Hemoglobin 30.7 31.0 25-34 pg Mean Corpuscular Hemoglobin Concent 34.2 34.6 32-36 g/dl Platelet Count 71 68 130-400 K/uL Mean Platelet Volume 10.0 10.3 7.4-10.4 fL Neutrophils (%) (Auto) 65.1 % Lymphocytes (%) (Auto) 6.0 % Monocytes (%) (Auto) 23.6 % Eosinophils (%) (Auto) 3.6 % Basophils (%) (Auto) 0.5 % Neutrophils # (Auto) 2.74 1.4-6.5 K/uL Lymphocytes # (Auto) 0.25 1.2-3.4 K/uL Monocytes # (Auto) 0.99 0.11-0.59 K/uL Eosinophils # (Auto) 0.15 0-0.5 K/uL Basophils # (Auto) 0.02 0-0.2 K/uL RDW Standard Deviation 44.6 45.9 36.4-46.3 fL RDW Coefficient of Variation 13.8 14.0 11.5-14.5 % Immature Granulocyte % (Auto) 1.2 % Immature Granulocyte # (Auto) 0.05 0.00-0.02 K/uL Toxic Granulation 2+ 2+ Dohle Bodies 2+ 2+ Large Platelets 1+ Anisocytosis PRESENT Bedside Glucose 82 70-90 mg/dl Neutrophils % (Manual) 82.4 % Lymphocytes % (Manual) 5.3 % Monocytes % (Manual) 3.5 % Eosinophils % (Manual) 5.3 % Basophils % (Manual) 2.6 % Myelocytes % 0.9 % Neutrophils # (Manual) 9.18 1.4-6.5 K/uL Total Absolute Neutrophils 9.18 1.4-6.5 K/uL Lymphocytes # (Manual) 0.59 1.2-3.4 K/uL Total Absolute Lymphocytes 0.59 1.2-3.4 K/uL Monocytes # (Manual) 0.39 0.11-0.59 K/uL Eosinophils # (Manual) 0.59 0-0.5 K/uL Basophils # (Manual) 0.29 0-0.2 K/uL Myelocytes # 0.10 0-0 K/uL Toxic Vacuolation 1+ Diagnostic Interpretation: CHEST 2 VIEWS ROUTINE CLINICAL HISTORY: 76 years-old Female presenting with Reevaluate pneumothorax. TECHNIQUE: PA and lateral views of the chest were obtained. COMPARISON: 01/24/[address] from 11/25/2016. FINDINGS: Left subclavian Mediport terminates near the superior cavoatrial junction. Atherosclerosis of the aortic arch. Cardiac silhouette normal in size. Mass in the left upper lobe demonstrated on CT from 11/25/2016 noted. Persistent moderate left pneumothorax. This is grossly stable in size. Right lung and pleural space clear. Osseous structures normal. Upper abdomen normal. IMPRESSION: 1. Grossly stable moderate left pneumothorax. 2. Left upper lobe mass. Electronically signed by: Jose Guadalupe Calvert M.D. 01/25/2017 11:40 AM Dictated Date/Time: 01/25/2017 11:36 AM Assessment & Plan POD #4 s/p Left Aport placement, Post-op Pneumothorax Patient seen and examined with Dr. Newell. CXR from 01/25/17 showing grossly stable moderate left pneumothorax - Unchanged. Afebrile, denies new pain, SOB or difficulty breathing. Appetite and diarrhea improved. WBC up to 11.14 today - s/p neupogen administration per oncology. Plan to discuss case with Dr. Dash's team. Continue management per Dr. Dash's team - possible d/c tomorrow pending repeat CXR. CXR unchanged No chest pain or SOB Management as per Dr. Dash's team WBC above 4 today Diarrhea, improved, C. diff negative Would keep one more day
[2017-01-26] MEDS: OXYCODONE/ACETAMINOPHEN 5-325 TAB PO PRN ×2 (11:33→16:31)
--- NOTE | 2017-01-26 14:34 | DIAGNOSTIC IMAGING REPORT ---
CHEST ONE VIEW PORTABLE HISTORY: 76 years-old Female post op pneumo follow-up exam in a patient with pneumothorax COMPARISON: Chest radiograph 01/25/2017 TECHNIQUE: Portable AP view of the chest FINDINGS: Left-sided apical pneumothorax appears generally stable with visceral pleural separation of 3.6 cm. Left subclavian Kksncu-o-Ryuz catheter is noted with distal tip in the region of the SVC. Heart is mildly enlarged. Atherosclerosis of the aorta. Mass of the left upper lobe redemonstrated. Bones of the chest appear grossly intact. IMPRESSION: Stable appearance of the moderate sized left pneumothorax. The above report was generated using voice recognition software. It may contain grammatical, syntax or spelling errors. Electronically signed by: Guillermo Godfrey M.D. 01/26/2017 2:32 PM Dictated Date/Time: 01/26/2017 2:31 PM
[2017-01-26 15:03] VITALS: BP 132/79; PULSE 83; TEMP 36.9; O2SAT 98
[2017-01-26 15:30] VITALS: O2SAT 94
[2017-01-26] MEDS: LORAZEPAM 0.5 MG TAB PO PRN (21:31)
[2017-01-26 22:57] VITALS: BP 128/73; PULSE 80; TEMP 37.3; O2SAT 92
[2017-01-27] MEDS: LEVOTHYROXINE 100 MCG TAB PO SCH (06:21)
--- NOTE | 2017-01-27 06:53 | DIAGNOSTIC IMAGING REPORT ---
CHEST ONE VIEW PORTABLE CLINICAL HISTORY: 76 years-old Female presenting with PNEUMOTHORAX. TECHNIQUE: Portable upright AP view of the chest was obtained. COMPARISON: 01/26/2017. FINDINGS: Left subclavian Mediport is accessed and terminates in the lower SVC. Atherosclerosis of aortic arch. Tortuosity of the descending thoracic aorta. Cardiac silhouette is normal in size. Stable appearance of the moderate left apical pneumothorax with similar pleural separation measuring over 3 cm. No large pleural effusion. Osseous structures normal. Upper abdomen normal. IMPRESSION: 1. Stable moderate left apical pneumothorax. Electronically signed by: Jose Guadalupe Calvert M.D. 01/27/2017 6:52 AM Dictated Date/Time: 01/27/2017 6:51 AM
[2017-01-27 06:59] VITALS: BP 119/72; PULSE 78; TEMP 37.2; O2SAT 92
--- NOTE | 2017-01-27 08:14 | SURGERY PROGRESS NOTE ---
DATE: 01/27/2017 Ms. Granados was seen today on 01/27/2017. She looks great. She is really not having pain. I think her wound looks good and I would just continue the kaltostat. I think this is going to heal up. Her radiation therapy has been completed and her white count is now back up. All in all, I think she looks good. I reviewed her chest x-ray. I think this pneumothorax is stable and she is not collecting pleural fluid. I would allow her to be discharged. I will see her back in 48 hours with a chest x-ray. At this point, I would not tap this as I do not think she is suffering from this and I think that this is going to resolve on its own.
--- NOTE | 2017-01-27 09:10 | Surgery Progress Note ---
Surgery Progress Note Date of Service Jan 27, 2017. Subjective no issues overnight, off oxygen Objective Vital Signs: Date Time Temp Pulse Resp B/P (MAP) Pulse Ox O2 Delivery O2 Flow Rate FiO2 01/27/17 06:59 37.2 78 18 119/72 (88) 92 Room Air 01/27/17 00:10 Room Air 01/26/17 22:57 37.3 80 16 128/73 (91) 92 Room Air 01/26/17 15:30 94 Room Air 01/26/17 15:03 36.9 83 18 132/79 (96) 98 Nasal Cannula 2.0 Respiratory/Chest: no respiratory distress, no accessory muscle use Assessment & Plan left pneumothorax lung CA CXR stable ok for discharge, f/u Thurs as planned with Dr. Dash
[2017-01-27] MEDS: PRAVASTATIN SOD 20 MG TAB PO SCH (09:33)
[2017-01-27 10:24] VITALS: BP 119/72; PULSE 78; TEMP 37.2; O2SAT 92
--- NOTE | 2017-01-27 14:17 | DISCHARGE SUMMARY ---
PRIMARY DISCHARGE DIAGNOSES: 1. Metastatic lung cancer. 2. Iatrogenic left pneumothorax. 3. Pancytopenia. 4. Neutropenic fever. PROCEDURE PERFORMED: Left subclavian A-port placement on 01/22/2017. CONSULTATIONS: 1. Thoracic surgery, Dr. Dash for left pneumothorax. 2. Oncology, Dr. Mcnamara for chemotherapy induced pancytopenia. HOSPITAL COURSE: The patient is a 76-year-old female taken to the operating room through same day surgery for a left subclavian A-port placement. Post-procedure x-ray showed a 1.5 cm pneumothorax. She was started on high-flow oxygen, admitted to the surgical floor for overnight observation. Her pleural separation increased to 3 cm the following morning. Thoracic surgery was consulted. She remained asymptomatic. The decision was made to continue to observe and not place a chest tube. Her white count at that time had fallen to 0.46 and oncology was consulted. She was started on Neupogen. She had low grade temperature overnight. The next day she was started on cefepime. She was also nauseated and Duragesic patch was discontinued. She was continued on oral analgesics. Chest x-ray remained stable with approximately 3 cm of pleural separation. She remained asymptomatic. Chest tube was not required. Her white count improved to 11,000 and her fevers resolved. She was stable for discharge home on 01/27/2017. DISCHARGE INSTRUCTIONS: Follow up with Dr. Dash in 2 days with repeat chest x-ray and removal of sutures from her prior subxiphoid incision. Follow up in a week or two with Dr. Newell for the A-port. Has follow-up with oncology on February 04. DISCHARGE MEDICATIONS: Resume home medications. She was still having some nausea. She could resume the fentanyl patch at home if she wishes, 12 mcg patch. Resume all other home medications: Fosamax 70 mg weekly, ascorbic acid 500 mg daily, Synthroid 188 mcg every other day, Ativan 0.5 mg at bedtime as needed, fish oil supplement, Zofran 8 mg as needed, Percocet 1 tablet every 6 hours as needed, MiraLax powder packet daily as needed, Pravachol 20 mg daily, Compazine 10 mg every 6 hours as needed, and Ultram 50 mg every 4 hours as needed. MTDD
== END 2017-01-27 11:29 | disposition home health service (06) | DRG 846 ==
LOC: C.OR 09:09 → C.MSW 10:15 → UNDOADMOB 10:15 → ENRESERV 15:42 → INTOOBSV 01-23 13:35 → OBSVTOIN 01-23 13:35
PROVIDERS: ADMIT Surgery; ATTEND Surgery
PROC: 0JH60XZ Insertion of Tunneled Vascular Access Device into Chest Subcutaneous Tissue and Fascia, Open Approach (ICD-10-PCS; principal; 2017-01-22 11:00)
PROC: 02HV33Z Insertion of Infusion Device into Superior Vena Cava, Percutaneous Approach (ICD-10-PCS; principal; 2017-01-22 11:00)
DX: Z51.11 Encounter for antineoplastic chemotherapy (principal); D61.810 Antineoplastic chemotherapy induced pancytopenia; C34.90 Malignant neoplasm of unspecified part of unspecified bronchus or lung; C79.51 Secondary malignant neoplasm of bone; J95.811 Postprocedural pneumothorax; E78.00 Pure hypercholesterolemia, unspecified; E03.9 Hypothyroidism, unspecified; R19.7 Diarrhea, unspecified; T45.1X5A Adverse effect of antineoplastic and immunosuppressive drugs, initial encounter; Z79.899 Other long term (current) drug therapy; Z87.891 Personal history of nicotine dependence

== ENCOUNTER → 2017-01-29 | Outpatient (CLI) | payer OTHER, BC ==
[~2017-01-29] MED LIST changes: +ASPCH81X PO; +CALC600T9 PO; -CEFAZOLIN 2000MG IV PUSH 10 ML IV SCH; +IBUP-1050 PO; -LACTATED RINGER'S 1000ML 1,000 ML IV SCH
--- NOTE | 2017-01-29 10:47 | DIAGNOSTIC IMAGING REPORT ---
CHEST 2 VIEWS ROUTINE HISTORY: 76 years-old Female J95.811 Pneumothorax, [id number] follow-up study to assess left-sided pneumothorax COMPARISON: Chest radiograph 01/27/2017 TECHNIQUE: PA and lateral views of the chest FINDINGS: Cardiac silhouette is within normal limits. Spiculated mass of the left upper lobe redemonstrated. Left subclavian Vtonua-s-Zxka catheter is again noted terminating in the region of the mid SVC. Left-sided pneumothorax has slightly decreased in the interval, now with pleural separation of 2.8 cm, previously 3.8. No pleural effusion or focal airspace consolidation. No overt pulmonary edema. The bones of the chest appear grossly intact. IMPRESSION: Mildly decreased size of left apical pneumothorax. The above report was generated using voice recognition software. It may contain grammatical, syntax or spelling errors. Electronically signed by: Guillermo Godfrey M.D. 01/29/2017 10:45 AM Dictated Date/Time: 01/29/2017 10:43 AM
== END | disposition home or self-care (01) ==
LOC: C.RAD 09:46
PROVIDERS: ATTEND Surgery
DX: J95.811 Postprocedural pneumothorax (principal)

== ENCOUNTER → 2017-02-12 | Outpatient (CLI) | payer OTHER, BC ==
[2017-02-12 14:24] VITALS: BP 104/69; PULSE 80; TEMP 36.8; O2SAT 98
--- NOTE | 2017-02-13 07:50 | Radiation Oncology Follow-Up ---
Radiation Oncology Follow-Up Date of Visit Feb 12, 2017. Reason For Visit One-month follow-up Radiation Completion Date 01/12/17 Diagnosis (1) Lung cancer metastatic to bone Status: Acute Onset Date: 12/18/2016 Histology Subtype: adenocarcinoma Stage: IV Permanent Comment: Development of anterior chest wall pain and right hip/groin pain Status post chest CT revealing a left lung mass Status post fine-needle aspiration of the sternum 12/18/2016 Adenocarcinoma consistent with pulmonary primary Status post PET/CT 12/03/2016 osteolytic metastatic disease Status post completion of radiation therapy 01/12/2017. She received 3000 cGy to the lumbar spine, pelvis, and sternum. Last Edited By: Alejandra Dwyer on Jan 23, 2017 07:50 History of Present Illness nelli Granados is a 76-year-old female who recently presented with complaints of chest pain. She did have a chest x-ray which revealed a potential pulmonary mass which was followed by a CT of the chest (reports unavailable for both studies). The patient was referred to Dr. Ferris from pulmonary medicine who recommended a PET/CT scan for staging and to determine the best location for a biopsy. The patient had a PET/CT scan completed in 12/03/2016 which revealed: "IMPRESSION: 1. There is a 3.4 cm FDG avid spiculated mass in the left upper lobe. This should be considered lung cancer until otherwise. 2. FDG avid left hilar and mediastinal lymph nodes are consistent with kana disease. 3. There is evidence of osteolytic metastatic disease as above. 4. There is a trace right pleural effusion. 5. Cholelithiasis. 6. Moderate constipation. 7. There is moderate colonic diverticulosis without CT evidence of acute diverticulitis. 8. Additional findings as above." The patient subsequently underwent a CT guided biopsy of the sternal lesion which was completed on 12/18/2016 which confirmed a diagnosis of metastatic adenocarcinoma consistent with pulmonary primary. According to the pathology report, there was not enough tissue available to perform additional testing for mutations including ALK and EGFR. The patient has been referred to Dr. Dash to potentially obtain more tissue. We have been asked to evaluate the patient for consideration of palliative radiation therapy to her areas of bony metastatic disease that is causing pain. The patient does not have a medical oncology referral yet. In general, the patient is complaining of pain in several areas including her anterior chest wall and right lower pelvis. She is currently on pain medications which are reported in the pain management report below. Decision was to give radiation for palliation of pain. Areas included were the lumbar spine, pelvis, and sternum. She received 3000 cGy to each site. The radiation was completed 01/12/2017. Interim History Over this past month she has had decrease in pain at the sternum as well as hip. She does feel that radiation was beneficial. She continues to take Percocet 3 times a day. She continues on chemotherapy every 3 weeks. She was recently hospitalized for 6 days due to neutropenia. Her next chemotherapy scheduled for 02/25/2017. She had mild dysphagia at the end of treatment. This is now resolved. She also had some skin irritation that occurred in the area of the sternum and groin. Both of these areas is also now completely healed. She has home physical therapy which is helping with her ambulation. She denies increasing cough congestion. She has no fever or chills. She stated that her last chemotherapy was given in today were told that her counts were borderline. Today she presents wearing a mask. Allergies Coded Allergies: Adhesives (Verified Allergy, Unknown, SORE SKIN, 01/22/17) Azithromycin (Verified Allergy, Unknown, WEAKNESS, 01/22/17) Protriptyline (Verified Allergy, Unknown, UNABLE TO RECALL REACTION, 01/22) Erythromycin (Verified Adverse Reaction, Unknown, WEAKNESS, 01/22/17) Home Medications Scheduled Alendronate/Cholecalciferol (Fosamax+D 70MG/2800 Iu), 1 TABLET PO WK Ascorbic Acid (Ascorbic Acid), 500 MG PO QAM Aspirin (Aspirin Chewable), 81 MG PO DAILY Calcium Carbonate-Vitamin D (Calcium + D), 1 TAB PO DAILY Levothyroxine Sodium (Synthroid), 100 MCG PO Q2D Levothyroxine Sodium (Synthroid), 88 MCG PO Q2D [place]-3 Fatty Acids (Fish Oil Triple Strength), 1 CAP PO QAM Pravastatin (Pravachol ), 20 MG PO QAM Scheduled PRN Ibuprofen (Advil), 400 MG PO Q8 PRN for Pain Lorazepam (Ativan), 0.5 MG PO HS PRN for Anxiety/Insomnia Ondansetron Hcl (Zofran), 8 MG PO Q8H PRN for Nausea Oxycodone/Acetaminophen 5MG/325MG (Percocet 5MG/325MG), 1 TABLET PO Q6H PRN for Pain Polyethylene Glycol 3350 (Miralax), 17 GM PO DAILY PRN for Constipation Prochlorperazine Maleate (Compazine), 10 MG PO Q6H PRN for Nausea Tramadol (Ultram), 50 MG PO Q4H PRN for Pain Review of Systems Gastrointestinal: Symptoms: Constipation GI Comments: Using antiemetics;no nausea w/recent chemo;Chronic constipation ; Oral: Other Oral Symptoms: Developed sensation food might get stuck w/swallowing since RT; Respiratory: Symptoms: WNL Urinary: Symptoms: WNL Physical Exam Vital Signs Date Time Temp Pulse Resp B/P (MAP) Pulse Ox O2 Delivery O2 Flow Rate FiO2 02/12/17 14:24 36.8 80 20 104/69 98 Fatigue: None General Appearance: no apparent distress Eyes: normal inspection, EOMI ENT: normal ENT inspection, hearing grossly normal Neck: no adenopathy, thyroid normal Respiratory/Chest: no respiratory distress, no accessory muscle use, + wheezing , + pertinent finding (sternal incision is healed. There is minimal skin changes slight dryness. There is no erythema. She has no desquamation.) Cardiovascular: regular rate, rhythm, no gallop, no murmur Abdomen: non tender, soft, + pertinent finding (right groin shows an area of resolving hyperpigmentation. There is no wet desquamation. There is very minimal remaining dry desquamation.) Extremities: no pedal edema Neurologic/Psychiatric: no motor/sensory deficits, alert, normal mood/affect Skin: warm/dry Pain Management Patient Reports Pain: Yes Pain Location: Old sternal biopsy site; Patient Preferred Pain Scale: 0 - 10 Initial Pain Intensity: 2.0 Pain Management Plan Pain medication is being managed through medical oncology. Laboratory Laboratory Results: were reviewed, and pertinent findings noted below, not applicable Laboratory Comments: White blood cell count 3960, hemoglobin 10.0, and platelets 103,000 on 2016. Pathology Pathology Results: not applicable Imaging Imaging Studies: not applicable Additional Studies ADDENDUM: I agree with note created by Alejandra Dwyer PA-C. I reviewed the patient's chart and information with her. I have examined and evaluated the patient. I reviewed relevant clinical information and answered the patient's and /or family's questions. [employer]PER[employer]OR [employer] Assessment & Plan Plan: She was seen and examined by Dr. Gamboa. She'll continue follow-up with her primary care physician and medical oncology. She continues on chemotherapy. Her next treatment is scheduled for 02/25/2017. A follow-up appointment with our office was not given. She will call if she has any questions or concerns. She made be referred back for medical oncology if needed. Assessment & Plan (Attending) I spent 15 minutes examining and counseling the patient. 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 I spent 15 minutes reviewing information and completing this note. [place] Copy To Brad Ramirez D.O.; Chaparro Gonzalez M.D.; Erick Dash MD
== END | disposition home or self-care (01) ==
LOC: C.ONC 13:58
PROVIDERS: ATTEND Physician Assistant Medical
DX: Z08 Encounter for follow-up examination after completed treatment for malignant neoplasm (principal); Z92.3 Personal history of irradiation; Z85.118 Personal history of other malignant neoplasm of bronchus and lung

== ENCOUNTER 2017-03-23 14:56 | Emergency (ER) | payer OTHER, BC ==
[~2017-03-23] VITALS: Ht 160 cm; Wt 68.2 kg
[~2017-03-23 14:56] MED LIST changes: -DRGTP12 TOP
[2017-03-23 15:12] VITALS: Ht 160 cm; Wt 68.2 kg
[2017-03-23 15:51] VITALS: O2SAT 95
[2017-03-23 16:02] LABS: HEMATOCRIT 28.8 % (37-47); HEMOGLOBIN 9.5 g/dL (12.0-16.0); MEAN CELL VOLUME 99.7 fL (80-100); MEAN CORPUSCULAR HEMOGLOBIN 32.9 pg (25-34); RED CELL DISTRIBUTION WIDTH CV 17.9 % (11.5-14.5); RED CELL DISTRIBUTION WIDTH SD 65.1 fL (36.4-46.3); WHITE BLOOD COUNT 11.52 K/uL (4.8-10.8)
--- NOTE | 2017-03-23 16:07 | DIAGNOSTIC IMAGING REPORT ---
CHEST ONE VIEW PORTABLE CLINICAL HISTORY: Sepsis dyspnea COMPARISON STUDY: 01/29/2017 FINDINGS: Improved exam compared to the prior study. No significant residual pneumothorax. Density lateral to left hilum on the prior study is diminished in size and now assumes a more left suprahilar position. Lungs otherwise appear clear. Central catheter remains in superior vena cava. IMPRESSION: Improved exam with no significant residual pneumothorax. Diminished size of a left perihilar nodular-type density. The above report was generated using voice recognition software. It may contain grammatical, syntax or spelling errors. Electronically signed by: Sen Schuster M.D. 03/23/2017 4:06 PM Dictated Date/Time: 03/23/2017 4:04 PM
[2017-03-23 16:10] LABS: PTT PATIENT 26.7 SECONDS (21.0-31.0)
[2017-03-23 16:15] LABS: ALBUMIN 2.9 gm/dl (3.4-5.0); CALCIUM 8.5 mg/dl (8.5-10.1); CREATININE 0.79 mg/dl (0.60-1.20)
[2017-03-23 16:17] LABS: TOTAL PROTEIN 6.5 gm/dl (6.4-8.2)
[2017-03-23 16:31] LABS: BASO % 0.3 %; BASO ABS # 0.03 K/uL (0-0.2); EOS % 0.5 %; EOS ABS # 0.06 K/uL (0-0.5); IG# 0.27 K/uL (0.00-0.02); INFLUENZA B ANTIGEN Neg for Influ B (NEG); LYMPH % 1.9 %; LYMPH ABS # 0.22 K/uL (1.2-3.4); MEAN PLATELET VOLUME 11.9 fL (7.4-10.4); MONO % 0.7 %; MONO ABS # 0.08 K/uL (0.11-0.59); NEUT % 94.3 %; NEUT ABS # 10.86 K/uL (1.4-6.5); PLATELET COUNT 32 K/uL (130-400)
[2017-03-23] MEDS ORDERED: OSELTAMIVIR PHOSPHATE 75 MG CAP PO STA ×2 (16:48→17:20)
[2017-03-23] MEDS ORDERED: FLUC100T4 PO (16:51)
[2017-03-23 17:06] VITALS: BP 124/65; PULSE 97; O2SAT 98
[2017-03-23] MEDS ORDERED: OSEL75CA23 PO (17:22)
[2017-03-23 17:41] VITALS: TEMP 36.9
--- NOTE | 2017-03-23 19:44 | EMERGENCY ROOM VISIT NOTE ---
History Report prepared by Mary: Kenan Vásquez Under the Supervision of: Dr. Jarrod Lee M.D. First contact with patient: 15:17 Chief Complaint: FLU LIKE SX Stated Complaint: COUGH AND RUNNY NOSE History of Present Illness The patient is a 77 year old female who presents to the Emergency Room with complaints of persistent generalized illness beginning yesterday. Her symptoms include cough, fevers, sinus congestion, and runny nose. The patient's fever at 101 degrees. She states "I heard a crinkling sound in my chest last night". She had a flu-shot this year. The patient denies body aches, leg swelling or pain, or vomiting. She is currently being treated for stage 4 lung cancer. Her most recent chemotherapy treatment was four days ago. The patient states that she has some pain in her chest, but this is chronic and likely related to her cancer. She notes that she had a biopsy done four months ago. Source of History: patient Onset: Yesterday Position: other (generalized) Quality: other (illness) Timing: constant Associated Symptoms: + fevers (101 degrees), + cough Note: The patient denies leg pain or swelling, or body aches. She also complains of sinus congestion, and runny nose. Review of Systems See HPI for pertinent positives & negatives. A total of 10 systems reviewed and were otherwise negative. Past Medical & Surgical Medical Problems: (1) Pneumothorax (2) Stage 4 lung cancer Family History No pertinent family history stated. Social History Smoking Status: Former Smoker Occupation Status: retired Current/Historical Medications Scheduled Alendronate/Cholecalciferol (Fosamax+D 70MG/2800 Iu), 1 TABLET PO WK Ascorbic Acid (Ascorbic Acid), 500 MG PO QAM Aspirin (Aspirin Chewable), 81 MG PO DAILY Calcium Carbonate-Vitamin D (Calcium + D), 1 TAB PO DAILY Fluconazole (Diflucan), 100 MG PO UD Levothyroxine Sodium (Synthroid), 100 MCG PO Q2D Levothyroxine Sodium (Synthroid), 88 MCG PO Q2D [place]-3 Fatty Acids (Fish Oil Triple Strength), 1 CAP PO QAM Oseltamivir Phosphate (Tamiflu), 75 MG PO BID Pravastatin (Pravachol ), 20 MG PO QAM Scheduled PRN Ibuprofen (Advil), 400 MG PO Q8 PRN for Pain Lorazepam (Ativan), 0.25-0.5 MG PO HS PRN for Anxiety/Insomnia Ondansetron Hcl (Zofran), 8 MG PO Q8H PRN for Nausea Oxycodone/Acetaminophen 5MG/325MG (Percocet 5MG/325MG), 1 TABLET PO Q6H PRN for Pain Polyethylene Glycol 3350 (Miralax), 17 GM PO DAILY PRN for Constipation Prochlorperazine Maleate (Compazine), 10 MG PO Q6H PRN for Nausea Allergies Coded Allergies: Adhesives (Verified Allergy, Unknown, SORE SKIN, 03/23/17) Azithromycin (Verified Allergy, Unknown, WEAKNESS, 03/23/17) Protriptyline (Verified Allergy, Unknown, UNABLE TO RECALL REACTION, ) Erythromycin (Verified Adverse Reaction, Unknown, WEAKNESS, 03/23/17) Physical Exam Vital Signs Date Time Temp Pulse Resp B/P (MAP) Pulse Ox O2 Delivery O2 Flow Rate FiO2 03/23/17 17:41 36.9 03/23/17 17:06 97 22 124/65 98 Room Air 03/23/17 16:23 79 03/23/17 15:51 95 Room Air 03/23/17 15:12 37.3 93 18 106/66 95 Room Air Physical Exam Constitutional: Vital signs reviewed. Eyes: Pupils are equal round reactive to light. Conjunctiva are noninjected. ENT: Pharynx is clear without erythema or exudate. Mucous membranes are moist. Neck supple without meningeal signs. Respiratory: Clear to auscultation bilaterally. Breath sounds are equal bilaterally. Cardiovascular: Regular rate and rhythm. No rubs or gallops. GI: Soft, nondistended and nontender. Bowel sounds are present. Musculoskeletal: Healing wounds to the mid-sternum. No peripheral edema. No lower extremity tenderness. Integumentary: No cyanosis. Neurological: The patient is awake and alert. No focal deficits. Psychiatric: Normal affect. Medical Decision & Procedures ER Provider Diagnostic Interpretation: Radiology results as stated below per my review and the radiologist's interpretation: CHEST ONE VIEW PORTABLE FINDINGS: Improved exam compared to the prior study. No significant residual pneumothorax. Density lateral to left hilum on the prior study is diminished in size and now assumes a more left suprahilar position. Lungs otherwise appear clear. Central catheter remains in superior vena cava. IMPRESSION: Improved exam with no significant residual pneumothorax. Diminished size of a left perihilar nodular-type density. The above report was generated using voice recognition software. It may contain grammatical, syntax or spelling errors. Electronically signed by: Sen Schuster M.D. 03/23/2017 4:06 PM Laboratory Results 03/23/17 15:45 Red Blood Count 2.89, Mean Corpuscular Volume 99.7, Mean Corpuscular Hemoglobin 32.9, Mean Corpuscular Hemoglobin Concent 33.0, Mean Platelet Volume 11.9, Neutrophils (%) (Auto) 94.3, Lymphocytes (%) (Auto) 1.9, Monocytes (%) (Auto) 0.7, Eosinophils (%) (Auto) 0.5, Basophils (%) (Auto) 0.3, Neutrophils # (Auto) 10.86, Lymphocytes # (Auto) 0.22, Monocytes # (Auto) 0.08, Eosinophils # (Auto) 0.06, Basophils # (Auto) 0.03 03/23/17 15:45 Test 03/23/17 15:45 03/23/17 15:53 03/23/17 17:05 White Blood Count 11.52 K/uL (4.8-10.8) Red Blood Count 2.89 M/uL (4.2-5.4) Hemoglobin 9.5 g/dL (12.0-16.0) Hematocrit 28.8 % (37-47) Mean Corpuscular Volume 99.7 fL (80-100) Mean Corpuscular Hemoglobin 32.9 pg (25-34) Mean Corpuscular Hemoglobin Concent 33.0 g/dl (32-36) Platelet Count 32 K/uL (130-400) Mean Platelet Volume 11.9 fL (7.4-10.4) Neutrophils (%) (Auto) 94.3 % Lymphocytes (%) (Auto) 1.9 % Monocytes (%) (Auto) 0.7 % Eosinophils (%) (Auto) 0.5 % Basophils (%) (Auto) 0.3 % Neutrophils # (Auto) 10.86 K/uL (1.4-6.5) Lymphocytes # (Auto) 0.22 K/uL (1.2-3.4) Monocytes # (Auto) 0.08 K/uL (0.11-0.59) Eosinophils # (Auto) 0.06 K/uL (0-0.5) Basophils # (Auto) 0.03 K/uL (0-0.2) RDW Standard Deviation 65.1 fL (36.4-46.3) RDW Coefficient of Variation 17.9 % (11.5-14.5) Immature Granulocyte % (Auto) 2.3 % Immature Granulocyte # (Auto) 0.27 K/uL (0.00-0.02) Toxic Granulation 1+ Toxic Vacuolation 1+ Platelet Estimate DECREASED Prothrombin Time 10.7 SECONDS (9.0-12.0) Prothromb Time International Ratio 1.0 (0.9-1.1) Activated Partial Thromboplast Time 26.7 SECONDS (21.0-31.0) Partial Thromboplastin Ratio 1.0 Anion Gap 8.0 mmol/L (3-11) Est Creatinine Clear Calc Drug Dose 56.2 ml/min Estimated GFR () 84.3 Estimated GFR (Non- 72.7 BUN/Creatinine Ratio 16.3 (10-20) Calcium Level 8.5 mg/dl (8.5-10.1) Total Bilirubin 0.9 mg/dl (0.2-1) Aspartate Amino Transf (AST/SGOT) 33 U/L (15-37) Alanine Aminotransferase (ALT/SGPT) 37 U/L (12-78) Alkaline Phosphatase 137 U/L (45-117) Total Protein 6.5 gm/dl (6.4-8.2) Albumin 2.9 gm/dl (3.4-5.0) Globulin 3.6 gm/dl (2.5-4.0) Albumin/Globulin Ratio 0.8 (0.9-2) Influenza Type A Antigen POS for Influ A (NEG) Influenza Type B Antigen Neg for Influ B (NEG) Bedside Lactic Acid Venous 2.62 mmol/L (0.90-1.70) Urine Color YELLOW Urine Appearance CLEAR (CLEAR) Urine pH 6.5 (4.5-7.5) Urine Specific [place] 1.008 (1.000-1.030) Urine Protein NEG (NEG) Urine Glucose (UA) NEG (NEG) Urine Ketones NEG (NEG) Urine Occult Blood 1+ (NEG) Urine Nitrite NEG (NEG) Urine Bilirubin NEG (NEG) Urine Urobilinogen NEG (NEG) Urine Leukocyte Esterase TRACE (NEG) Urine WBC (Auto) 1-5 /hpf (0-5) Urine RBC (Auto) 0-4 /hpf (0-4) Urine Hyaline Casts (Auto) 0 /lpf (0-5) Urine Epithelial Cells (Auto) 20-30 /lpf (0-5) Urine Bacteria (Auto) NEG (NEG) Laboratory results as reviewed by me. Medications Administered Medications (Trade) Dose Ordered Sig/Adama Route Start Time Stop Time Status Last Admin Dose Admin Oseltamivir Phosphate (Tamiflu Cap) 75 mg NOW STAT PO 03/23/17 16:48 03/23/17 16:49 DC 03/23/17 16:48 75 MG Oseltamivir Phosphate (Tamiflu Cap) 75 mg NOW STAT PO 03/23/17 17:20 03/23/17 17:21 DC 03/23/17 17:20 75 MG Heparin Sodium (Porcine) (Heparin 100 Unit/ml 5ml Flush) 5 ml STK-MED ONCE .ROUTE 03/23/17 17:31 03/23/17 17:32 DC 03/23/17 17:31 5 ML ECG Indication: chest pain Rate (beats per minute): 87 Rhythm: normal sinus Findings: no acute ischemic change, no ectopy, other (No ST elevations) ED Course 1519: The patient was evaluated in room B5. A complete history and physical exam was performed. 1648: Ordered Tamiflu Cap 75 mg PO. 1656: I discussed possible admission with the patient. 1716: Upon reevaluation, the patient appeared to have improvement of her symptoms. Her ambulatory pulse ox was 98%, and she was able to walk briskly without difficulty. Dr. Bateman has evaluated the patient, and feels that she is safe for discharge. I discussed harleen's findings with her. She verbalized agreement of the treatment plan. She would like a dose of Tamiflu for tonight, as she will not be able to make it to the pharmacy today. The patient was discharged home. 1720: Ordered Tamiflu Cap 75 mg PO. Medical Decision This is a 77-year-old female presents with fever and cough. Differential diagnosis includes influenza, bronchitis, pneumonia, viral syndrome, neutropenia. I did perform a limited focused review of portions of the patient' s old chart on the electronic medical record. The patient was admitted in January 2017 for an iatrogenic pneumothorax. I did evaluate the patient as noted above. IV access was established. 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 I did order and personally review the patient's 12-lead EKG and chest x-ray as described above. The patient has no evidence of pneumonia. I did order and review the patient's blood work as noted in the electronic medical record. Her white count is 11. Lactic acid slightly elevated. She is anemic. A rapid flu test was positive. I did discuss the test results with the patient. I did treat the patient with Tamiflu. My plan was to hospitalize her. I did discuss the case with the hospitalist. He did not feel the patient needed to be hospitalized and can be treated with Tamiflu as an outpatient. The patient passed an ambulatory trial and remained at 98% on room air. He did assess the patient himself and felt she was safe for discharge. The patient was therefore discharged home with a prescription for Tamiflu. She was given another dose so she could take tonight as she said she could not reach a pharmacy tonight. Medication Reconcilliation Current Medication List: was personally reviewed by me Blood Pressure Screening Patient's blood pressure: Normal blood pressure Blood pressure disposition: Did not require urgent referral Consults Time Called: 1653 Consulting Physician: Dr. Bateman - [facility] Hospitalist Returned Call: [phone] Bateman of [facility]. We discussed the patient's case. He feels that the patient would be safe for discharge unless she becomes hypoxic with ambulation. Impression Primary Impression: Influenza A Additional Impression: Anemia Scribe Attestation The scribe's documentation has been prepared under my direct and personally reviewed by me in its entirety. I confirm that the note above accurately reflects all work, treatment, procedures, and medical decision making performed by me. Departure Information Dispostion Home / Self-Care Prescriptions Oseltamivir Phosphate (Tamiflu) 75 Mg Cap 75 MG PO BID for 4 Days, #8 CAP Prov: Jarrod Lee M.D. 03/23/17 Referrals Chaparro Gonzalez M.D. (PCP) Forms HOME CARE DOCUMENTATION FORM, IMPORTANT VISIT INFORMATION Patient Instructions ED Flu, [facility], Oseltamivir capsules Additional Instructions You have been examined and treated today on an emergency basis only. This is not a substitute for, or an effort to provide, complete comprehensive medical care. It is impossible to recognize and treat all injuries or illnesses in a single emergency department visit. It is therefore important that you follow up closely with your physician. Call as soon as possible for an appointment. Return immediately for worsening symptoms or if you develop high fever, vomiting , shortness of breath, severe headache or any other concerning symptoms. Problem Qualifiers Additional Impression: Anemia Anemia type: unspecified type Qualified Codes: D64.9 - Anemia, unspecified
== END 2017-03-23 17:35 | disposition home or self-care (01) ==
LOC: C.EDB 14:58
DX: J10.1 Influenza due to other identified influenza virus with other respiratory manifestations (principal); D64.9 Anemia, unspecified; C34.90 Malignant neoplasm of unspecified part of unspecified bronchus or lung; Z79.899 Other long term (current) drug therapy; Z79.82 Long term (current) use of aspirin; Z87.891 Personal history of nicotine dependence; Z91.048 Other nonmedicinal substance allergy status; Z88.1 Allergy status to other antibiotic agents; Z88.8 Allergy status to other drugs, medicaments and biological substances

== ENCOUNTER → 2017-06-03 | Outpatient (CLI) | payer OTHER, BC ==
[~2017-06-03] MED LIST changes: +FLUC100T4 PO; +ONDA-170 PO; -ONDA8TAB6 PO; -TRAM-10 PO
--- NOTE | 2017-06-03 13:12 | DIAGNOSTIC IMAGING REPORT ---
PET/CT HISTORY: NON SMALL CELL LUNG CA TECHNIQUE: PET/CT was performed from the base of the skull through the pelvis following the intravenous administration of 13.4 mCi of F18-FDG. Non-contrast CT imaging was performed over the same range without breath-hold for attenuation correction of PET images and anatomic correlation, but not for primary interpretation as it is not of standard diagnostic quality. CT DOSE: COMPARISON: PET CT 12/03/2016. FINDINGS: HEAD AND NECK: There is no FDG-avid disease or significant lymphadenopathy in the imaged portions of the head and the neck. CHEST: Interval decrease in size and FDG uptake associated with the left upper lobe spiculated mass. This currently measures 2.8 x 2.3 cm and demonstrates an SUV max of 3.4. This previously demonstrated an SUV max of 12. Only a single FDG avid AP window lymph node remains. This measures 12 x 9 mm and demonstrates an SUV max of 5. This has also improved. No FDG avid hilar lymph nodes identified. No new nodules. Left Port-A-Cath terminates in the distal SVC. Small hiatus hernia. ABDOMEN/PELVIS: Mild diffuse FDG uptake within the bilateral adrenal glands with an SUV max of 4.4. No definite adrenal nodules identified. This may be physiologic. There is a 1.9 cm low-density lesion within the left hepatic lobe which may have slightly increased in size from 1.6 cm. However, comparison to the prior study is difficult due to motion artifact on the prior study. This does not demonstrate abnormal FDG uptake but bears watching future examinations to exclude a metastatic focus. No new or FDG avid hepatic lesions. Cholelithiasis. MUSCULOSKELETAL: Interval improvement in the osseous metastatic lesions seen within the sternum, L1, and pelvis. The majority of these demonstrate increased sclerosis consistent with treatment response. The dominant lesion within the sternum is now primarily cystic. The presternal cystic fluid collection measures 7.4 x 2.0 x 1.9 cm. This demonstrates partial peripheral calcification. SUV max of this lesion now measures 3.9, previously measuring 9.4. IMPRESSION: Interval improvement in the FDG avid left upper lobe pulmonary mass and metastatic disease as described above. Electronically signed by: Yang Billy M.D. 06/03/2017 1:10 PM Dictated Date/Time: 06/03/2017 12:51 PM
== END | disposition home or self-care (01) ==
LOC: C.PET 10:07
PROVIDERS: ATTEND Internal Medicine Hematology & Oncology
DX: C34.92 Malignant neoplasm of unspecified part of left bronchus or lung (principal)

== ENCOUNTER → 2017-09-04 | Outpatient (CLI) | payer OTHER, BC ==
[~2017-09-04] MED LIST changes: +PROC10TA PO; -PROC1TAB5 PO
[2017-09-04 11:24] LABS: BASO % 0.8 %; BASO ABS # 0.04 K/uL (0-0.2); EOS % 4.6 %; EOS ABS # 0.22 K/uL (0-0.5); HEMATOCRIT 34.9 % (37-47); HEMOGLOBIN 11.7 g/dL (12.0-16.0); IG# 0.01 K/uL (0.00-0.02); LYMPH % 20.8 %; MEAN CELL VOLUME 92.3 fL (80-100); MEAN CORPUSCULAR HGB CONC 33.5 g/dl (32-36); MEAN PLATELET VOLUME 9.7 fL (7.4-10.4); MONO % 10.4 %; NEUT % 63.2 %; NEUT ABS # 3.04 K/uL (1.4-6.5); PLATELET COUNT 118 K/uL (130-400); RED CELL DISTRIBUTION WIDTH CV 13.4 % (11.5-14.5); RED CELL DISTRIBUTION WIDTH SD 45.1 fL (36.4-46.3); WHITE BLOOD COUNT 4.81 K/uL (4.8-10.8)
[2017-09-04 11:46] LABS: ALBUMIN 3.2 gm/dl (3.4-5.0); ALKALINE PHOSPHATASE 95 U/L (45-117); ALT/SGPT 29 U/L (12-78); AST/SGOT 28 U/L (15-37); BLOOD UREA NITROGEN 24 mg/dl (7-18); CALCIUM 10.2 mg/dl (8.5-10.1); CARBON DIOXIDE 27 mmol/L (21-32); CREATININE 0.74 mg/dl (0.60-1.20); GLUCOSE 77 mg/dl (70-99); POTASSIUM 4.3 mmol/L (3.5-5.1); SODIUM 138 mmol/L (136-145); TOTAL PROTEIN 6.7 gm/dl (6.4-8.2)
== END | disposition home or self-care (01) ==
LOC: C.LABSPEC 11:06
PROVIDERS: ATTEND Internal Medicine Hematology & Oncology
DX: C34.92 Malignant neoplasm of unspecified part of left bronchus or lung (principal)

== ENCOUNTER → 2017-09-07 | Outpatient (CLI) | payer OTHER, BC ==
[2017-09-07 13:24] LABS: BASO % 0.3 %; BASO ABS # 0.02 K/uL (0-0.2); EOS % 3.4 %; HEMATOCRIT 36.7 % (37-47); LYMPH % 23.3 %; LYMPH ABS # 1.36 K/uL (1.2-3.4); MEAN CELL VOLUME 92.2 fL (80-100); MEAN CORPUSCULAR HEMOGLOBIN 30.2 pg (25-34); MEAN CORPUSCULAR HGB CONC 32.7 g/dl (32-36); MONO % 8.6 %; NEUT % 64.4 %; NEUT ABS # 3.76 K/uL (1.4-6.5); PLATELET COUNT 121 K/uL (130-400); RED CELL DISTRIBUTION WIDTH CV 13.3 % (11.5-14.5); RED CELL DISTRIBUTION WIDTH SD 44.8 fL (36.4-46.3); WHITE BLOOD COUNT 5.84 K/uL (4.8-10.8)
[2017-09-07 13:49] LABS: ALBUMIN 3.3 gm/dl (3.4-5.0); ALKALINE PHOSPHATASE 97 U/L (45-117); ALT/SGPT 32 U/L (12-78); AST/SGOT 33 U/L (15-37); BLOOD UREA NITROGEN 19 mg/dl (7-18); CALCIUM 9.5 mg/dl (8.5-10.1); CARBON DIOXIDE 25 mmol/L (21-32); CREATININE 0.66 mg/dl (0.60-1.20); GLUCOSE 79 mg/dl (70-99); POTASSIUM 4.4 mmol/L (3.5-5.1); SODIUM 136 mmol/L (136-145); TOTAL PROTEIN 6.9 gm/dl (6.4-8.2)
== END | disposition home or self-care (01) ==
LOC: C.LABSPEC 13:15
PROVIDERS: ATTEND Internal Medicine Hematology & Oncology
DX: C34.92 Malignant neoplasm of unspecified part of left bronchus or lung (principal)